=== PATIENT | female | born 1935 | race Caucasian/White ===

== ENCOUNTER → 2023-11-18 10:14 | Outpatient (REF) | payer MEDICARE, OTHER, SELFPAY ==
[2023-11-18 11:09] LABS: % Basophils 0.7 % (0-2); % Eosinophils 1.6 % (0-6); % Immature Granulocytes 0.3 % (0-0.5); % Lymphocytes 42.4 % (20.5-51.1); % Monocytes 5.6 % (1.7-9.3); % Neutrophils 49.4 % (42.2-75.2); Absolute Basophils 0.1 10^3/uL (0-0.2); Absolute Eosinophils 0.2 10^3/uL (0-0.7); Absolute Lymphocytes 4.3 10^3/uL (1.2-3.4); Absolute Monocytes 0.6 10^3/uL (0.1-0.6); Hematocrit 41.3 % (37.0-47.0); Hemoglobin 13.4 g/dL (12.0-16.0); Mean Corp Hgb Conc. 32.4 g/dL (33.0-37.0); Mean Corpuscular Hgb 31.3 pg (27.0-31.0); Mean Corpuscular Volume 96.5 fL (81.0-99.0); Nucleated Red Blood Cells % 0 %; Platelet Count 212 10^3/uL (130-400); Red Blood Cell Count 4.28 10^6/uL (4.20-5.40); Red Cell Dist. Width 13.1 % (11.5-14.5); White Blood Cell Count 10.1 10^3/uL (4.8-10.8)
[2023-11-18 11:35] LABS: ALT (SGPT) 15 U/L (0-35); AST (SGOT) 25 U/L (14-36); Albumin 4.6 g/dl (3.5-5.0); Alkaline Phosphatase 55 U/L (38-126); Blood Urea Nitrogen 17 mg/dl (7-17); Calcium 10.1 mg/dl (8.4-10.2); Carbon Dioxide 29 mmol/L (22-30); Chloride 101 mmol/L (98-107); Glucose 104 mg/dl (70-99); HDL Cholesterol 88 mg/dl; LDL Cholesterol, Calculated 89 mg/dl; Sodium 138 mmol/L (135-145); Total Bilirubin 0.8 mg/dl (0.2-1.3); Total Cholesterol 193 mg/dl (50-199); Total Protein 7.1 g/dl (6.3-8.2); Triglyceride 81 mg/dl (10-149); Very Low Density Lipoprotein 16 mg/dl (0-30); eGFR > 60.00
[2023-11-18 12:02] LABS: TSH Reflex To Free T4 1.35 uIU/ml (0.47-4.68)
== END ==
LOC: REG 10:14
PROVIDERS: ATTENDING PHYSICIAN Nurse Practitioner Family; FAMILY PHYSICIAN Internal Medicine Geriatric Medicine
DX: E78.2 Mixed hyperlipidemia (principal); J44.9 Chronic obstructive pulmonary disease, unspecified; E03.8 Other specified hypothyroidism; Z87.891 Personal history of nicotine dependence; I11.9 Hypertensive heart disease without heart failure; E04.1 Nontoxic single thyroid nodule; E55.9 Vitamin D deficiency, unspecified; R39.15 Urgency of urination; R03.0 Elevated blood-pressure reading, without diagnosis of hypertension; R54 Age-related physical debility; Z63.4 Disappearance and death of family member; R63.4 Abnormal weight loss
CPT/HCPCS: 36415; 80053; 80061; 84443; 85025

== ENCOUNTER 2024-04-11 11:37 | Emergency (ER) | payer MEDICARE, OTHER, SELFPAY ==
[2024-04-11 11:43] VITALS: BP 175/99
--- NOTE | 2024-04-11 11:51 | ED.GENMED ---
History of Present Illness
<JAH Wan Last Filed: 04/11/24 19:12>
General
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
Source: patient
Exam Limitations: none
Time Seen by Provider: 04/11/24 11:50
Nursing documentation reviewed up to this point in time: agreed with
History of Present Illness
History of Present Illness:
88-year-old female with past medical history of hypertension, hyperlipidemia presents emergency department today with concerns of vaginal irritation for the past 4 days. Patient reports that she is prone to getting cysts in her vagina and when she
started to feel irritation, she thought it was another cyst. Patient states that she looked in the area with a mirror and noticed that she had a whitish-pinkish mass in the area. She called her granddaughter who is a ICU nurse and told her to
report to the emergency department for further evaluation. Patient denies any burning with urination, any abdominal pain, any pelvic pain, any vaginal bleeding, any vaginal discharge, any fevers or chills. Patient states that she is feeling well
otherwise, she has had no nausea, no vomiting. Patient has had 4 children via vaginal . 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 Patient states that she is prone to getting urinary
tract infections.
Past History
<JAH Wan Last Filed: 04/11/24 19:12>
Past History
ED Past Medical History: COPD, HTN and Hypercholesterolemia
ED Past Surgical History: Urological
Social History
Tobacco: Former smoker
Drug: None
Personal:
Living: with family
Employment: Retired
Family History
Family History: Other
Review of Systems
<JAH Wan Last Filed: 04/11/24 19:12>
Review of Systems
All Other Systems: ROS reviewed and negative except as documented in HPI and ROS
Phy Exam
<Emily Delcid PA-C - Last Filed: 04/11/24 19:12>
Physical Exam
Physical Exam:
General: Patient is well appearing and in no acute distress; non-toxic
Skin: Warm and dry, no rashes or lesions
Head: Normocephalic, atraumatic
Eyes: Sclera non-icteric. EOMs intact.
Cardiac: Regular rate
Peripheral Vascular: No lower extremity swelling or edema
Pulm: Normal respiratory effort
Abdomen: No abdominal tenderness to palpation, no palpable masses, no inguinal lymphadenopathy
Genitourinary: Prolapse of tissue noted at the vaginal introitus--vaginal versus cervical prolapse. No pain with bimanual exam, no palpable masses. No bartholin gland cyst.
Neuro: CN II-XII intact, no focal neurologic deficits.
Psychiatric: Appropriate mood and affect.
Course
<Emily Delcid PA-C - Last Filed: 04/11/24 19:12>
Orders/Labs/Results
Orders:
Orders
04/11/24 12:27
Urinalysis Reflex To Culture Urgent
Date Specimen was Collected: 04/11/24
Time Specimen was Collected: 12:17
Vital Signs
Initial and Last Documented VS:
Initial Vital Signs
Temp Pulse Resp BP Pulse Ox
98.1 F 88 18 175/99 98
04/11/24 11:43 04/11/24 11:43 04/11/24 11:43 04/11/24 11:43 04/11/24 11:43
Last Documented Vital Signs
Temp Pulse Resp BP Pulse Ox
98.1 F 81 16 167/87 98
04/11/24 11:43 04/11/24 13:38 04/11/24 13:38 04/11/24 13:38 04/11/24 13:38
<Cordell Sanchez DO - Last Filed: 04/11/24 12:25>
Orders/Labs/Results
Orders:
Orders
04/11/24 12:27
Urinalysis Reflex To Culture Urgent
Date Specimen was Collected: 04/11/24
Time Specimen was Collected: 12:17
Vital Signs
Initial and Last Documented VS:
Initial Vital Signs
Temp Pulse Resp BP Pulse Ox
98.1 F 88 18 175/99 98
04/11/24 11:43 04/11/24 11:43 04/11/24 11:43 04/11/24 11:43 04/11/24 11:43
Last Documented Vital Signs
Temp Pulse Resp BP Pulse Ox
98.1 F 81 16 167/87 98
04/11/24 11:43 04/11/24 13:38 04/11/24 13:38 04/11/24 13:38 04/11/24 13:38
<Emily Delcid PA-C - Last Filed: 04/11/24 19:12>
MDM/Problems Addressed
Differential Diagnosis Includes:
Differentials include vaginal prolapse, cervical prolapse, rectal prolapse, resultant gland cyst, atrophic vaginitis
MDM/Problems Addressed:
88-year-old female with past medical history of hypertension, hyperlipidemia presents emergency department today with concerns of vaginal irritation for the past 4 days. Patient reports that she is prone to getting cysts in her vagina and when she
started to feel irritation, she thought it was another cyst. On physical exam, she is no obvious cyst or abscess, no vaginal discharge, no erythema or irritation noted to the vaginal introitus. She does have what appears to be a cervical prolapse.
Discussed that pessary treatment may be needed in the future. Discussed outpatient follow up. Patient stable for discharge.
Chronic conditions affecting care:
htn, hlp
<Emily Delcid PA-C - Last Filed: 04/11/24 19:12>
*Pulse Oximetry
Patient hypoxic: no
*Critical Care Note
Total Time (30-74mins, 75-104mins- exclusive of procedures): Not Applicable
Data Reviewed
Review of Other/Old Records Reveals: Records (Reviewed ER physician documentation from 12/07/2018, patient seen for acute bronchitis)
Source: patient and records
ED Attending Note
<Emily Delcid PA-C - Last Filed: 04/11/24 19:12>
-
Portions of this chart may have been created with voice recognition software.� Occasional wrong word or��sound alike� substitutions may have occurred due to the inherent limitations of voice recognition software.
<Cordell Sanchez DO - Last Filed: 04/11/24 12:25>
ED Attending Note
Patient seen and examined by attending physician: Yes
I performed the substantive portion of visit, reviewed & personally made and approve the management plan that is documented in note by myself or JEAN MARIE.: Yes
ED Attending Note:
88-year-old female presents after she thought she saw a lump in her vagina. The patient had been having a little bit discomfort at her right labia so checked with a mirror. Otherwise no fevers. She currently offers no complaints. She states is
only a mild ache and was not a 'pain'. Exam: Vagina appears normal. She does have a mild cervical prolapse. I wonder if she had a more pronounced prolapse when she looked. Assessment and plan. Okay for outpatient management. Patient appears
well. No other complaints
Discharge Plan
Departure
Patient Disposition: Home (Routine Discharge)
Date of Disposition: 04/11/24
Time of Disposition: 13:30
Patient with high blood pressure during this ER visit?: Yes
Condition: Good
Discharge Problem:
Cervical prolapse
Instructions: Pelvic organ prolapse, BLOOD PRESSURE
Prescriptions:
No Action
Zocor
40 mg PO DAILY
Zoloft
25 mg PO PRN
prednisone 10 MG tablet
10 mg PO .TAPER Qty: 30 0RF
Rx Instructions:
Take 40mg daily x3days, 30mg daily x3days,
20mg daily x3days, 10mg daily x3days.
levofloxacin 500 MG tablet
500 mg PO DAILY 6 Days Qty: 6 0RF
Referrals:
Agapito Baltazar MD [Family Provider] -
Activity Restrictions/Additional Instructions:
Your urinalysis did not show any evidence of infection.
Please follow up with your primary care provider and your urologist.
Please return emergency department should you experience chest pain, shortness of breath, burning with urination, vaginal bleeding, fevers or chills, or any other signs or symptoms concerning to you.
Interventions
Interventions:
*Risk Screen - Suicide Last Done: 04/11/24 11:41
*General Assessment Last Done: 04/11/24 11:41
*Neglect/Abuse Screening Last Done: 04/11/24 11:41
ED- Fall Risk Assessment Last Done: 04/11/24 13:38
*ED COVID-19 Vaccine History Last Done: 04/11/24 12:10
*Nursing Disposition Last Done: 04/11/24 13:38
ED-Female Genitourinary Assessment Last Done: 04/11/24 12:10
Discharge Date and Time
Discharge Date/Time: 04/11/24 13:39
Print Language: AUSTRALIAN
[2024-04-11 13:04] LABS: Urine Albumin Trace (Neg - Trace); Urine Bilirubin Negative (Negative); Urine Character Clear (Clear); Urine Color Yellow; Urine Glucose Negative (Negative); Urine Ketone Negative (Negative); Urine Leukocyte Negative (Negative); Urine Nitrite Negative (Negative); Urine Occult Blood Negative (Negative); Urine Specific Gravity 1.015 (<1.030); Urine Urobilinogen Negative (Neg - 1+)
[2024-04-11 13:38] VITALS: BP 167/87
== END 2024-04-11 13:39 | disposition home or self-care (01) ==
LOC: EMR 11:37
PROVIDERS: Physician Assistant; EMERGENCY PHYSICIAN Emergency Medicine; FAMILY PHYSICIAN Internal Medicine Geriatric Medicine
DX: N81.2 Incomplete uterovaginal prolapse (principal); I10 Essential (primary) hypertension; E78.00 Pure hypercholesterolemia, unspecified; Z87.891 Personal history of nicotine dependence
CPT/HCPCS: 99282; 81003

== ENCOUNTER 2024-07-11 18:45 | Inpatient (IN) | payer MEDICARE, OTHER, SELFPAY ==
[2024-07-11] VITALS (10 sets, daily range): BP systolic 120–162; BP diastolic 58–75; PULSE 85–89; BMI 20.4
--- NOTE | 2024-07-11 15:51 | ED.GENMED ---
History of Present Illness
General
Chief Complaint: Fainting/Passed Out
Source: patient and ambulance crew
Exam Limitations: none
Time Seen by Provider: 07/11/24 15:40
History of Present Illness
History of Present Illness:
88yoF with a history of hypertension, hyperlipidemia, and tobacco use presenting via EMS for evaluation after a syncopal episode. Patient has been sick for the past 2 days with flu-like symptoms and 'feeling like hell.' She went to urgent care today
and tested positive for the flu. She was stood up from the stretcher and started to feel dizzy. She went to sit in the chair and told her granddaughter that she felt like she had to pass out. Granddaughter states she went unresponsive and patient
was lowered to the ground. The doctor at the urgent care apparently did not heart any heart sounds. The granddaughter is an ICU nurse at [facility] and started CPR. She had 1 round of CPR and 2 rescue breaths and patient started to wake up.
Patient was awake and alert on EMS arrival. She reports some chest discomfort currently.
Past History
Past History
ED Past Medical History: COPD, HTN and Hypercholesterolemia
ED Past Surgical History: Urological
Social History
Tobacco: Former smoker
Drug: None
Personal:
Living: with family
Employment: Retired
Family History
Family History: Other
Phy Exam
General Physical Exam
General Presentation: well appearing and no apparent distress
General age: appears stated age
General Skin: warm and dry
General Habitus: normal
General Mental: alert
ENT Exam
ENT Exam: normocephalic
Cardiovascular Exam
Cardiovascular Exam: regular rate/rhythm, no edema and no murmur
Pulmonary Exam
Pulmonary Exam: lungs clear, no respiratory distress, no rales, no crackles, no rhonchi and other (Mild chest wall tenderness. No ecchymosis or crepitus. Equal bilateral breath sounds. )
Neurological Exam
Neurological Exam: alert
[place] Coma Scale
Eye Opening: Spontaneous
Verbal Response: Oriented
Motor Response: Obeys Commands
GCS Total Score: 15
Skin Exam
Skin Exam: normal color and warm/dry
Psychiatric Exam
Psychiatric Exam: normal mood/affect
Course
Orders/Labs/Results
Orders:
Orders
07/11/24 Breakfast
Regular
At Your Request: Full Participation
07/11/24 15:46
Electrocardiogram (*1) Urgent
Reason for Study: Fatigue / Weakness
EKG- Treatment ONCE
07/11/24 15:48
Cardiac Monitoring- Treatment ONCE
07/11/24 15:49
CR Chest - 2 Views Urgent
Comment:
Reason For Exam: SOB
07/11/24 15:52
COVID-19 Antigen Urgent
Source: Nasal Swab
Complete Blood Count/With Diff Urgent
Comprehensive Metabolic Panel Urgent
Troponin I Urgent
Influenza A+B Rapid Molecular Urgent
TRACEE Source: Nasal Swab
Specimen Description:
07/11/24 16:29
0.9% Sodium Chloride 500 ml [Nss] 500 ml IV BOLUS
07/11/24 17:34
Admit/Transfer Patient As Directed
Co-Sign Provider:
Level of Care: Inpatient admission
Assign to:: Telemetry
Physician / Group: Serena
Diagnosis: Influenza, Syncope, Elevated Trop
Reason for Telemetry: Syncope
Date to Stop Telemetry: 07/13/24
Time to Stop Telemetry: 11:00
Reason for Hospitalization: Syncope, Elevated Trop, Influenza
Expected length of stay greater than two midnights?: Yes
ELOS- Estimated Length of Stay in days: 3
I certify the patient meets the requirements for IP care: Yes
07/11/24 17:43
Code Status As Directed
Resuscitation Status: Full Code
07/11/24 17:51
Acetaminophen [Tylenol] 650 mg PO Q4HPRN PRN
07/11/24 20:16
Ipratropium/Albuterol Sulfate [Duoneb] 3 ml INH R Q4HPRN PRN
Methenamine Hippurate [Hiprex] 1 gram PO BID
Oseltamivir Phosphate [Tamiflu] 30 mg PO BID
07/11/24 20:16
Echo 2D MMode Color/Doppler Routine
Reason for Study: syncope
CARDIOLOGY CONSULT Routine
Consulting Provider: Michelle Avendaño
Was physician already notified: Yes
DIETARY CONSULT Routine
Reason for Consult: weight loss
Activity As Directed
Activity Level: Out of Bed- Chair
I&O [Intake/ Output] As Directed
Frequency: q12h
Vital Signs As Directed
Frequency: Per unit guidelines
Weight As Directed
Frequency: Daily
Smoking Cessation Counseling [RESP] Routine
Ot Eval And Treat Routine
Pt Eval And Treat Routine
Activity Level: Out of Bed-Early Mobility
DX Deep Vein Thrombosis Video Routine
07/12/24 00:00
Heparin 5,000 units SC Q8
07/12/24 06:00
Basic Metabolic Panel IN AM
Complete Blood Count/No Diff IN AM
07/12/24 08:00
Atorvastatin [Lipitor] 20 mg PO DAILY
Mirtazapine [Remeron] 7.5 mg PO DAILY
Tiotropium [place] 2.5 Mcg [Spiriva Respimat 2.5 Mcg] 2 puff INH R DAILY
Abnormal Lab Results
07/11/24
15:52
MCH 32.2 H pg
(27.0-31.0)
MPV 11.0 H fL
(7.4-10.4)
Abs Immat Gran (auto) 0.1 H 10^3/uL
(0-0.05)
Absolute Monos (auto) 0.8 H 10^3/uL
(0.1-0.6)
Immature Gran % 1.4 H %
(0-0.5)
Lymphocytes % 19.2 L %
(20.5-51.1)
Monocytes % 10.2 H %
(1.7-9.3)
Sodium 133 L mmol/L
(135-145)
Chloride 97 L mmol/L
(98-107)
BUN 21 H mg/dl
(7-17)
Glucose 113 H mg/dl
(70-99)
AST 45 H U/L
(14-36)
Troponin I 0.090 H* ng/ml
07/11/24 15:52
07/11/24 15:52
Vital Signs
Initial and Last Documented VS:
Initial Vital Signs
Temp Pulse Resp BP Pulse Ox
99.2 F 88 16 145/67 95
07/11/24 15:42 07/11/24 15:42 07/11/24 15:42 07/11/24 15:42 07/11/24 15:42
Last Documented Vital Signs
Temp Pulse Resp BP Pulse Ox
99.2 F 91 18 149/69 93
07/11/24 20:30 07/11/24 20:30 07/11/24 20:30 07/11/24 20:30 07/11/24 20:30
MDM/Problems Addressed
Differential Diagnosis Includes:
88yoF here after a syncopal episode at urgent care. [place] dizzy and went unresponsive. Staff at urgent care reportedly could not hear heart sounds and CPR was started. Received 1 round of CPR and patient woke up. Patient awake and alert on arrival.
She c/o chest discomfort which she did not have prior to CPR. VSS. Differential diagnosis includes but is not limited to: vasovagal event, orthostatic hypotension, dehydration, arrhythmia, doubt true cardiac arrest
Initial ED plan: Check cardiac labs, EKG, COVID/flu swab, and CXR. IV fluid bolus.
*EKG
Interpreted by ED Provider?: Yes
EKG Intrepretation Date: 07/11/24
Heart Rate: 86
Rate: normal
Rhythm: sinus
Pease: normal axis
QRS Pattern: left vent hypertrophy
Ischemia: non-specific ST changes
*Critical Care Note
Total Time (30-74mins, 75-104mins- exclusive of procedures): Not Applicable
Update Note
Update Note:
Troponin is mildly elevated at 0.09. Suspect this is 2/2 CPR. No ischemic changes on EKG and patient had no chest pain prior to receiving CPR. Influenza test positive. CXR negative for infiltrates. Patient admitted for further evaluation and
management.
ED Attending Note
-
Portions of this chart may have been created with voice recognition software.� Occasional wrong word or��sound alike� substitutions may have occurred due to the inherent limitations of voice recognition software.
Discharge Plan
Departure
Patient Disposition: Admit
Date of Disposition: 07/11/24
Time of Disposition: 17:01
Presentation/result/management discussed w/ accepting MD/DO: Hospitalist
Discharge Problem:
Syncope, Influenza A, Elevated troponin
Interventions
Interventions:
*Risk Screen - Suicide Last Done: 07/11/24 15:49
*General Assessment Last Done: 07/11/24 15:49
*Neglect/Abuse Screening Last Done: 07/11/24 15:49
*ED COVID-19 Vaccine History Last Done: 07/11/24 15:49
*Nursing Disposition Last Done: 07/11/24 20:15
ED- Cardiac Assessment Last Done: 07/11/24 15:49
ED- Neurological Assessment Last Done: 07/11/24 15:49
Discharge Date and Time
Discharge Date/Time: 07/11/24 20:15
[2024-07-11 16:00] LABS: % Basophils 0.8 % (0-2); % Immature Granulocytes 1.4 % (0-0.5); % Lymphocytes 19.2 % (20.5-51.1); % Monocytes 10.2 % (1.7-9.3); % Neutrophils 68.4 % (42.2-75.2); Absolute Basophils 0.1 10^3/uL (0-0.2); Absolute Immature Granulocytes 0.1 10^3/uL (0-0.05); Absolute Lymphocytes 1.4 10^3/uL (1.2-3.4); Absolute Monocytes 0.8 10^3/uL (0.1-0.6); Absolute Neutrophils 5.1 10^3/uL (1.4-6.5); Hematocrit 39.7 % (37.0-47.0); Hemoglobin 13.6 g/dL (12.0-16.0); Mean Corp Hgb Conc. 34.3 g/dL (33.0-37.0); Mean Corpuscular Hgb 32.2 pg (27.0-31.0); Mean Corpuscular Volume 94.1 fL (81.0-99.0); Nucleated Red Blood Cells % 0 %; Platelet Count 177 10^3/uL (130-400); Red Blood Cell Count 4.22 10^6/uL (4.20-5.40); Red Cell Dist. Width 13.3 % (11.5-14.5); White Blood Cell Count 7.4 10^3/uL (4.8-10.8)
[2024-07-11 16:13] LABS: COVID-19 Antigen Negative (Negative)
[2024-07-11 16:14] LABS: ALT (SGPT) 29 U/L (0-35); AST (SGOT) 45 U/L (14-36); Albumin 4.7 g/dl (3.5-5.0); Alkaline Phosphatase 60 U/L (38-126); Blood Urea Nitrogen 21 mg/dl (7-17); Calcium 8.9 mg/dl (8.4-10.2); Carbon Dioxide 25 mmol/L (22-30); Chloride 97 mmol/L (98-107); Glucose 113 mg/dl (70-99); Potassium 4.1 mmol/L (3.5-5.1); Sodium 133 mmol/L (135-145); Total Bilirubin 0.7 mg/dl (0.2-1.3); Total Protein 6.9 g/dl (6.3-8.2); eGFR 54.53
[2024-07-11] MEDS: NSS 500 IV (16:32)
--- NOTE | 2024-07-11 17:51 | HPS.HSE ---
Family Physician
-
Family Physician: Agapito Baltazar
Chief Complaint
-
Syncope, Fever
History of Present Illness
Patient is an 88-year-old female past medical history of hyperlipidemia, and tobacco use disorder who presents following a syncopal episode. Additional history is obtained from patient's granddaughter at the bedside. Patient developed flu-like
symptoms 2 days ago. She reports weakness, fatigue, poor appetite, with bodyaches, chills and fever. She also notes some intermittent dizziness. She was seen in urgent care today and tested positive for influenza. While at urgent care she
transferred on the exam table to a chair. Shortly after sitting in the chair she passed out. Granddaughter lowered her to the floor and was unable to detect a radial pulse. Granddaughter started CPR, and patient quickly woke up. EMS was called
and upon arrival patient was noted to be mildly hypotensive, and she is brought to the emergency department for evaluation.
Medical History
Past Medical History
Past Medical History: Reports Other
Additional Past Medical History:
Hyperlipidemia
Recurrent UTIs
Tobacco Use Disorder
Weight Loss / Malnutrition
Past Surgical History: Reports Other
Additional Past Surgical History:
Bladder Surgery
Social History
Tobacco: Smoker (1/2 PPD)
Living: Alone
Family History
Family History: Not pertinent
Allergies / Home Medications
Allergies reflects when Allergies were last updated in [facility].
Home Medications with original date entered in [facility]
Allergy/Medication List:
Allergies
Allergy/AdvReac Type Severity Reaction Status Date / Time
Penicillins Allergy Rash Verified 12/07/18 19:47
Home Medications
methenamine hippurate 1 gram tablet 1 g PO BID 07/11/24
mirtazapine 7.5 mg tablet 7.5 mg PO DAILY 07/11/24
simvastatin 40 mg tablet 40 mg PO DAILY 07/11/24
tiotropium bromide 2.5 mcg/actuation mist for inhalation (Spiriva Respimat) 2 puff inhalation DAILY 07/11/24
Review of Systems
-
A 12 point ROS was completed and negative except as noted: Yes
Constitutional: Reports Fever and Chills
Respiratory: Reports Cough
Cardiac: Reports Other (Chest soreness following CPR ); Denies Palpitations
Physical Exam
Vital Signs
Vital Signs
Temp Pulse Resp BP Pulse Ox
99.2 F 87 30 146/65 94
07/11/24 15:42 07/11/24 17:00 07/11/24 17:00 07/11/24 17:00 07/11/24 17:00
Physical Exam
General: Comfortable and Conversant
HEENT: Anicteric, Moist mucous membranes and Other
Respiratory: Rhonchi (Few scattered) and Non Labored Respirations
Cardiac: S1/S2 and Regular Rhythm; No Murmur
GI: Soft and Non Tender
Rectal: Deferred by Provider
Musculoskeletal: No Clubbing, No Cyanosis and No Edema
Skin: Warm and Dry
Neuro: Awake, Alert, Oriented and Nonfocal/grossly intact
Psych: Calm
Laboratory Results
-
07/11/24 15:52
07/11/24 15:52
Laboratory Results
Total Bilirubin 0.7 mg/dl (0.2-1.3) 07/11/24 15:52
AST 45 U/L (14-36) H 07/11/24 15:52
ALT 29 U/L (0-35) 07/11/24 15:52
Alkaline Phosphatase 60 U/L (38-126) 07/11/24 15:52
Troponin I 0.090 ng/ml H* 07/11/24 15:52
Data Reviewed
-
Diagnostic Radiology: Report Reviewed by me
Lab Data: Labs Reviewed by me
Impression/Plan
-
Syncope, doubt true cardiac arrest
-Consult Cardiology
-Trend Troponin, currently minimally elevated likely related to CPR
-Monitor on Telemetry
-Check Echo
-Check orthostatic VS
Acute Bronchitis secondary to Influenza A
-Continue Tamiflu
-Continue DuoNeb PRN
Tobacco Use Disorder
-Encourage smoking cessation
-Continue Spiriva
Hyperlipidemia
-Continue simvastatin
Weight Loss / Malnutrition
-Continue mirtazapine
-Consult Dietary
Recurrent UTIs
-Continue Hiprex
DVT proph: SC Heparin
Code Status: Full Code
[2024-07-11] MEDS: TYLENOL 650 MG PO ×2 (17:54→21:48)
--- NOTE | 2024-07-11 18:02 | W.PN.UPDATE ---
Update Note
Progress Note Update
This is an addendum to the H&P written by Chiquis Pemberton on 07/11/2024.� Patient seen and examined independently with PA.
88-year-old female past medical history of hyperlipidemia, tobacco use presenting for syncopal episode.� Patient having upper respiratory symptoms, weakness and fever for the past 2 days.� Tested positive for flu at urgent care today.� [place] dizzy
today and had syncopal episode at urgent care.� Dr Melonie reynaga did not hear heart sounds and granddaughter who is an ICU nurse started CPR.� She received 1 round of CPR and 2 rescue breaths started to wake up. Patient with some chest pain.�
Chest x-ray shows probable chronic pleural-parenchymal scarring in the lung apices.� No pneumonia.� Small probable post inflammatory bleb.� Labs normal.� Troponin of 0.09.� EKG shows normal sinus rhythm.
Influenza positive.� COVID-negative.
Patient with syncopal episode in the setting of influenza infection.� Doubt true cardiac arrest.� Slight troponin elevation could be secondary to CPR.� IV fluids given.� Tamiflu started.� Trend troponins.
[2024-07-11] MEDS: HIPREX 1 GRAM PO (20:59)
[2024-07-11] MEDS: TAMIFLU 30 MG PO (21:00)
[2024-07-11] MEDS: REMERON 7.5 MG PO (21:47)
--- NOTE | 2024-07-11 22:00 | PTCARENOTE ---
pt is aaox3, VENETIE IRA. pt c/o sternal pain r/t cpr done at urgent care. -administered Tylenol w/ +eff. pt is flu positive. stating 90-92% on room air. while ambulating pt de-stated to 84% on room air. pt was MATTA/SOB. placed on 2L w/ SpO2=96%. bed alarm
on and pt is oriented to room w/ call santos in reach.
[2024-07-11 22:12] LABS: Troponin I 0.101 ng/ml
[2024-07-11] MEDS: HEPARIN 5000 UNITS SC (22:51)
[2024-07-12] VITALS (8 sets, daily range): BP systolic 125–149; BP diastolic 54–68; PULSE 83; O2SAT 84–97; BMI 20.2
[2024-07-12] MEDS: TYLENOL 650 MG PO ×3 (06:15→21:11)
[2024-07-12 06:52] LABS: Hematocrit 41.8 % (37.0-47.0); Hemoglobin 13.8 g/dL (12.0-16.0); Mean Corpuscular Hgb 31.6 pg (27.0-31.0); Mean Corpuscular Volume 95.7 fL (81.0-99.0); Mean Platelet Volume 11.3 fL (7.4-10.4); Platelet Count 163 10^3/uL (130-400); Red Blood Cell Count 4.37 10^6/uL (4.20-5.40); Red Cell Dist. Width 13.3 % (11.5-14.5); White Blood Cell Count 6.1 10^3/uL (4.8-10.8)
--- NOTE | 2024-07-12 07:11 | W.PN.HOSP.TC ---
Today's Communication/Plan
-
Patient doing well this morning, has some musculoskeletal chest pain, otherwise no SOB, no dizziness
Continue to monitor on telemetry
Assessment / Plan
Assessment / Plan
Physical Exam
General: Comfortable and Conversant
HEENT: Anicteric, Moist mucous membranes and Other
Respiratory: Rhonchi (Few scattered) and Non Labored Respirations
Cardiac: S1/S2 and Regular Rhythm
GI: Soft and Non Tender. Positive bowel sounds.
Musculoskeletal: No Cyanosis and No Edema
Skin: Warm and Dry
Neuro: Awake, Alert, Oriented x3. Cranial Nerves 2 through 12 grossly intact bilaterally. Strength and sensation grossly intact bilaterally.
Psych: Calm
Assessment/Plan
Syncope, doubt true cardiac arrest
-At urgent care on 07/11/24, urgent care provider did not hear heart sounds and granddaughter who is an ICU nurse started CPR -- patient received 1 round of CPR and 2 rescue breaths started to wake up -- had some chest
wall pain after that, as expected
-Consulted Cardiology, appreciate their evaluation and recommendations
-Trend Troponin, currently minimally elevated likely related to CPR
-Chest x-ray showed probable chronic pleural-parenchymal scarring in the lung apices; small probable post inflammatory bleb.
-Monitor on Telemetry
-Check Echo
-Check orthostatic VS
Acute Bronchitis secondary to Influenza A
URI symptoms, weakness and fever for ~2 days prior to presentation
-Continue Tamiflu
-Continue DuoNeb PRN
Tobacco Use Disorder
-Encourage smoking cessation
-Continue Spiriva
Hyperlipidemia
-Continue simvastatin
Weight Loss / Malnutrition
-Continue mirtazapine
-Consult Dietary
Recurrent UTIs
-Continue Hiprex
DVT Prophylaxis: Subq Heparin
Code Status: Full Code
Anticipated Discharge: 24 - 48 hours
Subjective/Interval History
-
Date of Service: July 12, 2024
Patient was seen and examined. She denied any dizziness, shortness of breath, still has some musculoskeletal chest pain from the chest compressions she received.
Objective Data
-
Labs:
Laboratory Results
07/12/24
05:58
WBC 6.1
Hgb 13.8
Hct 41.8
Plt Count 163
Sodium Pending
Potassium Pending
Chloride Pending
Carbon Dioxide Pending
BUN Pending
Creatinine Pending
Glucose Pending
Calcium Pending
Vital Signs:
Vital Signs
Temp Pulse Resp BP Pulse Ox
98.8 F 89 18 134/61 92
07/12/24 03:02 07/12/24 03:02 07/12/24 03:02 07/12/24 03:02 07/12/24 03:02
I&O
07/11/24 07/12/24 07/13/24
06:59 06:59 06:59
Intake Total 240 / 240
Balance 240 / 240
[2024-07-12 07:23] LABS: Blood Urea Nitrogen 21 mg/dl (7-17); Calcium 8.6 mg/dl (8.4-10.2); Carbon Dioxide 27 mmol/L (22-30); Chloride 101 mmol/L (98-107); Estimated Creatinine Clearance 36 ml/min; Glucose 84 mg/dl (70-99); Sodium 136 mmol/L (135-145); eGFR > 60.00
[2024-07-12] MEDS: LIPITOR 20 MG PO (07:58)
[2024-07-12] MEDS: HIPREX 1 GRAM PO ×2 (07:58→21:09)
[2024-07-12] MEDS: TAMIFLU 30 MG PO ×2 (07:58→21:09)
[2024-07-12] MEDS: HEPARIN 5000 UNITS SC ×3 (08:20→23:41)
[2024-07-12] MEDS: SPIRIVA RESPIMAT 2.5 MCG 2 PUFF INH (08:48)
[2024-07-12 09:15] LABS: Troponin I 0.153 ng/ml
[2024-07-12 12:13] LABS: Glucose - Point of Care 137 mg/dl (70-99)
--- NOTE | 2024-07-12 13:08 | PTCARENOTE ---
Pt says she feels better/stronger today. Trailed off O2 and is 91% on room air. Denies sob. OOB w/ assist x 1 and RW w/o issue.
--- NOTE | 2024-07-12 14:33 | CON.CAR ---
Addendum entered and electronically signed by Gladys Carlos DO 07/12/24 16:45:
I saw and examined the patient.
The Manager [employer]'s note was reviewed and I agree with the note.
Comment: Patient seen and examined. Chart/telemetry reviewed. Updated patient's granddaughter, Kyara who is also POA over the telephone. Still complaining of cough and shortness of breath but not currently requiring nasal cannula O2. Had noted
some desaturations with ambulation last evening. She is mostly complaining of rib/sternal pain following CPR prior to admission
General: No acute distress, AAOX3
Heart: Regular. Positive S1-S2 no murmurs or rubs
Lungs: Bronchovesicular breath sounds with coarse rhonchi bilaterally. Positive end expiratory wheeze bilaterally.
Chest: No ecchymosis or chest wall deformities
Abd: Positive BS, NT/ND, neg rebound/rigidity/guarding
Ext: No edema
Neuro: nonfocal
Plan:
88-year-old female with influenza A status post loss of consciousness/syncope at urgent care with brief CPR by granddaughter
-Supportive care for influenza
-Tamiflu
-O2 supplementation as needed. Would recheck ambulatory O2 prior to discharge
Concern for coronary artery disease
-She has cardiac risk factors with ongoing tobacco dependence and some episodes of exertional chest pain as an outpatient prior to this event when she carries groceries up the steps
-She denies chest pain at the time of syncopal event
-History of left bundle branch block dating back to EKG from 2019; patient/family were unaware
-Current chest pain complaints are consistent with musculoskeletal following CPR
-Troponin peak 0.153
-2D echocardiogram reviewed with patient and granddaughter: Low normal LV systolic function with mild anteroseptal hypokinesis. No hemodynamically significant valve pathology. No pericardial effusion
-Options of ischemic evaluation reviewed. Will plan for medical therapy while recovering from influenza A. Will arrange for an outpatient Lexiscan nuclear stress test and outpatient cardiac follow-up.
-Continue aspirin 81 mg daily. Continue atorvastatin 20 mg daily. Will add Toprol-XL 12.5 mg daily.
-Lipid profile pending
Musculoskeletal/rib pain following brief bystander CPR
-Would get rib x-rays
Tobacco dependence
-Tobacco cessation strongly advised
-Consider outpatient pulmonary evaluation
Discharge planning
Original Note:
Consultation
Consultation Request
Date/Time Consultation Performed: 07/12/24
Requesting Provider: Dr. Lopez
Performing Provider: Felisa Ramirez PA-C for Dr. Carlos
Reason for Consultation: elevated troponin, syncope
Medical History
-
Chief Complaint: syncope
History of Present Illness:
Patient is an 88-year-old female with past medical history of recurrent UTIs, hyperlipidemia, likely COPD, ongoing tobacco use who presented to [facility] due to syncopal episode while at urgent care for evaluation of flulike symptoms. She
tested positive for influenza. Shortly after transferring from exam table to a chair she passed out. Her granddaughter who is an ICU nurse lowered her to the floor and was unable to detect a pulse, therefore started CPR, and patient was noted to
quickly wake up. Denies prodromal symptoms however states it all happened very fast. She was brought to the ER and admitted. Cardiology consulted as troponins mildly elevated. Patient denies cardiac history, and denies chest pains prior to
admission and prior to the episode. She does report some chest discomfort at present felt to be due to CPR.
PMH:
Recurrent UTIs
Hyperlipidemia
Chronic left bundle branch block
COPD
Ongoing tobacco use
Past Medical History
Past Medical History: Other (in HPI)
Social History
Tobacco: Smoker
Alcohol: None
Personal:
Living: Alone
Employment: Retired
Family History
Family History: Reviewed & Not Pertinent
Allergies / Home Medications
Allergy/AdvReac Type Severity Reaction Status Date / Time
Penicillins Allergy Rash Verified 12/07/18 19:47
�Medication �Instructions �Recorded �Confirmed �Type
methenamine hippurate 1 gram tablet 1 g PO BID 07/11/24 07/11/24 History
mirtazapine 7.5 mg tablet 7.5 mg PO DAILY 07/11/24 07/11/24 History
simvastatin 40 mg tablet 40 mg PO DAILY 07/11/24 07/11/24 History
tiotropium bromide 2.5 2 puff inhalation DAILY 07/11/24 07/11/24 History
mcg/actuation mist for inhalation
(Spiriva Respimat)
Review of Systems
-
History Source: Patient
All other systems: Negative unless noted
Physical Exam
Vital Signs
Temp Pulse Resp BP Pulse Ox
98.1 F 80 16 131/57 91
07/12/24 11:44 07/12/24 11:44 07/12/24 11:44 07/12/24 11:44 07/12/24 13:08
Lab Results
07/12/24 05:58
07/12/24 05:58
Troponin I 0.153 ng/ml H* 07/12/24 08:26
Physical Exam
General: No Apparent Distress and Comfortable
HEENT: Normocephalic, Anicteric and Moist Mucous Membranes
Respiratory: Wheezes (few B/L) and Non Labored Respirations
Cardiac: S1/S2 and Regular Rhythm
GI: Soft, Non Tender, Non Distended and Normal Bowel Sounds
Musculoskeletal: No Clubbing, No Cyanosis and No Edema
Skin: Warm and Dry
Neuro: AO x 3
Impression / Plan
-
Primary Cupola Melter: none prior to admission
Assessment:
Presentation with syncope
Chest discomfort s/p brief CPR secondary to above
Influenza A +
Bronchitis secondary to above
Elevated troponin, suspected nonischemic myocardial injury secondary to above
Recurrent UTIs
Hyperlipidemia
Chronic left bundle branch block
COPD
Ongoing tobacco use
Weight Loss / Malnutrition
ECHO 07/12/24: pending
Plan:
-Patient presented after syncopal episode at urgent care after being diagnosed with influenza A. She has had poor appetite, fatigue, weakness in setting of the flu
-Cardiology consulted due to elevated troponin, peak troponin 0.15.
-Reports chest discomfort, however this is felt to be secondary to CPR she received in setting of syncopal episode
-EKG sinus rhythm with chronic left bundle branch block
-Check echo
-Add aspirin 81 mg daily
-Check CVE. on zocor 40mg daily as OP
-would avoid BB in setting of known COPD. BPs stable
-would plan for OP cardiac follow up and ischemic evaluation once recovered
-continue supportive care of influenza. no evidence of PNA by CXR
-reviewed PCP note in eCW from 01/04/24
Data Reviewed
-
EKG: Tracing Personally Visualized and interpreted
Radiology: Report Reviewed by me
Labs: Labs Reviewed by me
Old Records: Reviewed
[2024-07-12 14:45] LABS: Troponin I 0.135 ng/ml
[2024-07-12] MEDS: LOW STRENGTH ASPIRIN 81 MG PO (15:48)
[2024-07-12 16:12] LABS: HDL Cholesterol 80 mg/dl; LDL Cholesterol, Calculated 85 mg/dl; Total Cholesterol 182 mg/dl (50-199); Triglyceride 86 mg/dl (10-149); Very Low Density Lipoprotein 17 mg/dl (0-30)
[2024-07-12] MEDS: TOPROL XL 12.5 MG PO (16:38)
--- NOTE | 2024-07-12 18:41 | PTCARENOTE ---
Received pt from [facility] via wheelchair. Pt transferred with minimal assist x 1 into bed. C/O chest, sternal pain. Tylenol previously given. Will continue to monitor.
[2024-07-12] MEDS: REMERON 7.5 MG PO (21:09)
[2024-07-13] VITALS (7 sets, daily range): BP systolic 72–155; BP diastolic 40–71; PULSE 44–74; O2SAT 91
[2024-07-13] MEDS: TYLENOL 650 MG PO ×2 (03:00→08:18)
--- NOTE | 2024-07-13 07:42 | W.PN.HOSP.TC ---
Today's Communication/Plan
-
Stop beta lori
Bedrest since patient had near syncope while standing with low HR and low BP on standing -- cardiology to evaluate further
Assessment / Plan
Assessment / Plan
Physical Exam
General: Comfortable and Conversant
HEENT: Anicteric, Moist mucous membranes and Other
Respiratory: Rhonchi (Few scattered) and Non Labored Respirations
Cardiac: S1/S2 and Regular Rhythm
GI: Soft and Non Tender. Positive bowel sounds.
Musculoskeletal: No Cyanosis and No Edema
Skin: Warm and Dry
Neuro: Awake, Alert, Oriented x3. Cranial Nerves 2 through 12 grossly intact bilaterally. Strength and sensation grossly intact bilaterally.
Psych: Calm
Assessment/Plan
Syncope, doubt true cardiac arrest
Orthostatic Hypotension
-Orthostatic hypotension: blood pressure laying 119/56, HR 74. BP sitting 72/40, HR 71.
-At urgent care on 07/11/24, urgent care provider did not hear heart sounds and granddaughter who is an ICU nurse started CPR -- patient received 1 round of CPR and 2 rescue breaths started to wake up -- had some chest
wall pain after that, as expected
-Consulted Cardiology, appreciate their evaluation and recommendations
-Chest x-ray showed probable chronic pleural-parenchymal scarring in the lung apices; small probable post inflammatory bleb.
-Monitor on Telemetry
-Echo 07/12 with EF 51% and mild mid anteroseptal hypokinesis as noted above. Would recommend OP ischemic evaluation once recovered from influenza.
-Will consider Midodrine, but patient does have bradycardia at times
-JIMI compression hose
-Maintain bedrest for now given significant orthostatic symptoms and bradycardia upon standing
Bradycardia
-Hold beta lori which was newly started
Acute Bronchitis secondary to Influenza A
URI symptoms, weakness and fever for ~2 days prior to presentation
-Continue Tamiflu
-Continue DuoNeb PRN
New, right hip/leg pain that is sharp and stabbing
-CT of the right hip
Tobacco Use Disorder
-Encourage smoking cessation
-Continue Spiriva
Hyperlipidemia
-Continue simvastatin
Weight Loss / Malnutrition
-Continue mirtazapine
-Consult Dietary
Recurrent UTIs
-Continue Hiprex
DVT Prophylaxis: Subq Heparin will switch to Lovenox
Code Status: Full Code
Anticipated Discharge: > 48 hours
Subjective/Interval History
-
Date of Service: July 13, 2024
Patient was seen and examined. She was sitting comfortably in a chair, denied any dizziness, but later in the afternoon, she a near syncope episode with HR dropping into the 40s, resolved with rest.
Objective Data
-
Labs:
Laboratory Results
07/13/24
07:25
WBC Pending
Hgb Pending
Hct Pending
Plt Count Pending
Sodium Pending
Potassium Pending
Chloride Pending
Carbon Dioxide Pending
BUN Pending
Creatinine Pending
Glucose Pending
Calcium Pending
Total Bilirubin Pending
AST Pending
ALT Pending
Alkaline Phosphatase Pending
Vital Signs:
Vital Signs
Temp Pulse Resp BP Pulse Ox
98.4 F 89 18 137/60 90
07/13/24 03:09 07/13/24 03:09 07/13/24 03:09 07/13/24 03:09 07/13/24 03:09
I&O
07/12/24 07/13/24 07/14/24
06:59 06:59 06:59
Intake Total 240 / 240 240 / 240
Balance 240 / 240 240 / 240
[2024-07-13] MEDS: HIPREX 1 GRAM PO ×2 (07:53→21:20)
[2024-07-13] MEDS: TAMIFLU 30 MG PO ×2 (07:54→21:24)
[2024-07-13] MEDS: LIPITOR 20 MG PO (07:54)
[2024-07-13] MEDS: LOW STRENGTH ASPIRIN 81 MG PO (07:55)
[2024-07-13] MEDS: HEPARIN 5000 UNITS SC ×2 (07:56→16:51)
[2024-07-13] MEDS: TOPROL XL PO (07:57)
[2024-07-13] MEDS: SPIRIVA RESPIMAT 2.5 MCG 2 PUFF INH (08:14)
[2024-07-13 08:20] LABS: % Basophils 0.7 % (0-2); % Eosinophils 0.1 % (0-6); % Immature Granulocytes 0.3 % (0-0.5); % Lymphocytes 38.6 % (20.5-51.1); % Monocytes 8.2 % (1.7-9.3); % Neutrophils 52.1 % (42.2-75.2); Absolute Basophils 0.1 10^3/uL (0-0.2); Absolute Lymphocytes 2.9 10^3/uL (1.2-3.4); Absolute Monocytes 0.6 10^3/uL (0.1-0.6); Absolute Neutrophils 3.9 10^3/uL (1.4-6.5); Hematocrit 39.1 % (37.0-47.0); Hemoglobin 13.1 g/dL (12.0-16.0); Mean Corp Hgb Conc. 33.5 g/dL (33.0-37.0); Mean Corpuscular Hgb 31.4 pg (27.0-31.0); Mean Corpuscular Volume 93.8 fL (81.0-99.0); Mean Platelet Volume 11.7 fL (7.4-10.4); Nucleated Red Blood Cells % 0 %; Platelet Count 165 10^3/uL (130-400); Red Blood Cell Count 4.17 10^6/uL (4.20-5.40); Red Cell Dist. Width 13.4 % (11.5-14.5); White Blood Cell Count 7.5 10^3/uL (4.8-10.8)
[2024-07-13 09:12] LABS: ALT (SGPT) 33 U/L (0-35); AST (SGOT) 59 U/L (14-36); Albumin 3.6 g/dl (3.5-5.0); Alkaline Phosphatase 49 U/L (38-126); Blood Urea Nitrogen 27 mg/dl (7-17); Calcium 8.7 mg/dl (8.4-10.2); Carbon Dioxide 24 mmol/L (22-30); Chloride 101 mmol/L (98-107); Estimated Creatinine Clearance 36 ml/min; Glucose 76 mg/dl (70-99); Potassium 4.1 mmol/L (3.5-5.1); Sodium 133 mmol/L (135-145); Total Bilirubin 0.6 mg/dl (0.2-1.3); Total Protein 5.8 g/dl (6.3-8.2); eGFR > 60.00
--- NOTE | 2024-07-13 10:05 | W.PN.CARDCBS ---
Addendum entered and electronically signed by Kumar Pichardo MD 07/13/24 17:40:
88-year-old woman admitted from urgent care with syncope in the setting of influenza A. Patient had detectable troponin 0.153, had received CPR, chest discomfort possibly related to chest compressions. Blood pressure dropped with metoprolol, which
has been stopped. She had sinus pauses without second-degree AV block up to 4.5 seconds. These were relatively abrupt without PP cycle length lengthening prior to pause. Cycle length
PMH: UTIs, hyperlipidemia, left bundle branch block, COPD with ongoing tobacco abuse, weight loss and poor nutrition, bronchitis
Current meds: Methamphetamine, atorvastatin 20, Spiriva, Tamiflu, subcu heparin, Remeron, aspirin 81 mg a day, lidocaine patch
Patient hypotensive earlier, currently 133/71, pulse 72, respiratory 21, afebrile, weight is 46.4 kg, chronically ill, now with acute pain right anterolateral thigh just below the inguinal ligament, limited exam and lungs with some rales right base,
regular rate and rhythm, no obvious murmurs,
Hemoglobin is 13.1, white count 7 point, platelets 165, BUN and creatinine 27 and 0.8, potassium 4 point
Chest x-ray no active disease
ECG sinus rhythm, left bundle branch block
ECG: EF 81%, anteroseptal wall motion abnormality, normal RV, trace MR, mild TR
Impression:
Syncope in the setting of influenza A
Longstanding left bundle branch block, with pauses up to 4.5 seconds on monitor
Suspected hematoma near the origin of right quadriceps
Non-ACS related myocardial injury likely related to influenza A
COPD/ongoing tobacco use
Plan:
At this point, syncope has been attributed to physiologic stress of influenza A, possible volume depletion, though with 4.5-second pause we will need to continue to observe.
Would withhold beta-blockers as planned.
Would volume replete with a liter or so of IV fluid IV fluid
Await CT scan of leg
We can consider outpatient sestamibi study though this may not be mandatory
If continues with symptomatic bradycardia in the absence of negative chronotropic's, we may need to consider pacemaker implantation, hopefully as she recovers from influenza this will not be required. Likely will need outpatient ambulatory monitor.
Original Note:
Today's Communication / Plan
-
Continue management of influenza per primary service
Will arrange for OP stress testing. Continue aspirin 81mg daily
Did not tolerate Toprol 12.5mg daily as BP dropped this AM. Will stop
Follow up arranged.
Impression / Plan
-
Primary Collator: none prior to admission, initially seen by Dr. Carlos
Impression:
Presentation with syncope
Chest discomfort s/p brief CPR secondary to above
Influenza A +
Bronchitis secondary to above
Elevated troponin, suspected nonischemic myocardial injury secondary to above
Recurrent UTIs
Hyperlipidemia
Chronic left bundle branch block
COPD
Ongoing tobacco use
Weight Loss / Malnutrition
Echo 07/12/24: EF 51%, mild mid anteroseptal hypokinesis, trivial MR, mild TR
Plan:
-Patient presented after syncopal episode at urgent care after being diagnosed with influenza A. She has had poor appetite, fatigue, weakness in setting of the flu.
-Continue management of influenza per primary service.
-Elevated troponin noted, peaking at 0.153. Suspect nonischemic myocardial injury in the setting of influenza and CPR.
-Continues w/ some chest discomfort likely related to brief CPR she received in the setting of syncope. Rib xray does note a fracture deformity of the L 7th rib, but appears more chronic/remote.
-Echo 07/12 with EF 51% and mild mid anteroseptal hypokinesis as noted above. Would recommend OP ischemic evaluation once recovered from influenza.
-New to Toprol 12.5mg daily 07/12, but became orthostatic this AM with BP dropping to 72/40. Agree w/ stopping Toprol.
-Continue aspirin 81mg daily.
-LDL 85, on simvastatin 40mg daily as OP.
HPI: Patient is an 88-year-old female with past medical history of recurrent UTIs, hyperlipidemia, likely COPD, ongoing tobacco use who presented to [facility] due to syncopal episode while at urgent care for evaluation of flulike symptoms.
She tested positive for influenza. Shortly after transferring from exam table to a chair she passed out. Her granddaughter who is an ICU nurse lowered her to the floor and was unable to detect a pulse, therefore started CPR, and patient was noted
to quickly wake up. Denies prodromal symptoms however states it all happened very fast. She was brought to the ER and admitted. Cardiology consulted as troponins mildly elevated. Patient denies cardiac history, and denies chest pains prior to
admission and prior to the episode. She does report some chest discomfort at present felt to be due to CPR.
Progress Note - Collator
Subjective
Date of Service: July 13, 2024
No complaints other than rib pain. Did have some lightheadedness w/ drop in BP this AM, but feeling better now.
Objective
Labs:
07/13/24 07:25
07/13/24 07:25
Labs
Hgb 13.1 g/dL (12.0-16.0) 07/13/24 07:25
Hct 39.1 % (37.0-47.0) 07/13/24 07:25
Plt Count 165 10^3/uL (130-400) 07/13/24 07:25
Sodium 133 mmol/L (135-145) L 07/13/24 07:25
Potassium 4.1 mmol/L (3.5-5.1) 07/13/24 07:25
BUN 27 mg/dl (7-17) H 07/13/24 07:25
Creatinine 0.8 mg/dL (0.6-1.0) 07/13/24 07:25
Glucose 76 mg/dl (70-99) 07/13/24 07:25
Troponins
07/11/24 07/11/24 07/11/24
15:52 20:00 21:42
Troponin I 0.090 H* Cancelled 0.101 H*
07/12/24 07/12/24
08:26 14:08
Troponin I 0.153 H* 0.135 H*
Vital Signs and I&O:
Vital Signs
Temp Pulse Resp BP Pulse Ox
98.4 F 68 16 119/56 93
07/13/24 07:00 07/13/24 08:21 07/13/24 08:21 07/13/24 07:57 07/13/24 08:21
Vital Signs
Temp Pulse Resp BP Pulse Ox
98.4 F 68 16 119/56 93
07/13/24 07:00 07/13/24 08:21 07/13/24 08:21 07/13/24 07:57 07/13/24 08:21
Intake & Output
07/11/24 07/12/24 07/13/24 07/14/24
06:59 06:59 06:59 06:59
Intake Total 240 / 240 240 / 240
Balance 240 / 240 240 / 240
Physical Exam
Physical Exam
GEN: No distress, awake, alert, oriented x3
HEENT: supple, anicteric, mmm
LUNGS: CTA b/l, no wheezes/rales
CV: Reg, S1/S2, no murmur
EXT: No clubbing, cyanosis, or edema
NEURO: Gross non-focal
SKIN: Warm, dry, no rash
--- NOTE | 2024-07-13 11:30 | PTCARENOTE ---
Patient positive for orthostatic hypotension. Laying BP 119/56, HR 74. Sitting BP 72/40, HR 71. Patient complaining of feeling lightheaded and dizzy. This RN notified hospitalistJohn--recommended Midodrine and TEDs. Cardiology
notified--Toprol XL discontinued. No midodrine or TEDs ordered.
--- NOTE | 2024-07-13 15:23 | PTCARENOTE ---
While working with OT, patient nearly had another syncopal episode. HR dropped into the 40s, patient stated 'I feel like i am going to pass out'. Laying BP was 114/49. OT was unable to obtain sitting/standing reading due to patient's symptoms.
Cardiology PA and hospital medicine doc notified. Dr. Pichardo to come to bedside.Additionally, patient complaining of new, right hip pain characterized as sharp and stabbing, negatively impacting RLE ROM. Awaiting imaging orders from Dr. Lopez.
--- NOTE | 2024-07-13 16:18 | CM ---
Patient seen bedside.
IA completed.
Patient lives alone in a 1 story apartment with 8 steps to enter going down.
patient does not use assistive devices.
patient drives.
No hx VN or skilled rehab.
Independent prior to admission.
Patient with right hip pain.
PT recommending home with home care.
[facility], entered in [facility]
PCP: Dr Baltazar
Pharmacy: [facility]
Plan: home with VN, granddaughter jesus transport home
[2024-07-13] MEDS: LIDOCAINE 4% PATCH 1 PATCH TOPICAL (16:50)
[2024-07-13] MEDS: ULTRAM 12.5 MG PO (17:48)
[2024-07-13] MEDS: LR 1000 IV (17:49)
[2024-07-13] MEDS: DILAUDID 0.2 MG IV (18:38)
[2024-07-13] MEDS: TYLENOL 1000 MG PO (21:19)
[2024-07-13] MEDS: REMERON 7.5 MG PO (21:24)
[2024-07-14] VITALS (7 sets, daily range): BP systolic 136–168; BP diastolic 58–76; PULSE 89–94; BMI 20.6
[2024-07-14] MEDS: ULTRAM 12.5 MG PO (02:58)
[2024-07-14] MEDS: LR 1000 IV ×2 (06:08→19:46)
--- NOTE | 2024-07-14 07:28 | W.PN.HOSP.TC ---
Today's Communication/Plan
-
See plan
Assessment / Plan
Assessment / Plan
Physical Exam
General: Comfortable and Conversant
HEENT: Anicteric, Moist mucous membranes and Other
Respiratory: Rhonchi (Few scattered) and Non Labored Respirations
Cardiac: S1/S2 and Regular Rhythm
GI: Soft and Non Tender. Positive bowel sounds.
Musculoskeletal: No Cyanosis and No Edema
Skin: Warm and Dry
Neuro: Awake, Alert, Oriented x3. Cranial Nerves 2 through 12 grossly intact bilaterally. Strength and sensation grossly intact bilaterally.
Psych: Calm
Assessment/Plan
Syncope, doubt true cardiac arrest
Orthostatic Hypotension
-Orthostatic hypotension: blood pressure laying 119/56, HR 74. BP sitting 72/40, HR 71.
-At urgent care on 07/11/24, urgent care provider did not hear heart sounds and granddaughter who is an ICU nurse started CPR -- patient received 1 round of CPR and 2 rescue breaths started to wake up -- had some chest
wall pain after that, as expected
-Consulted Cardiology, appreciate their evaluation and recommendations
-Chest x-ray showed probable chronic pleural-parenchymal scarring in the lung apices; small probable post inflammatory bleb.
-Monitor on Telemetry
-Echo 07/12 with EF 51% and mild mid anteroseptal hypokinesis as noted above. Would recommend OP ischemic evaluation once recovered from influenza.
-Will consider Midodrine, but patient does have bradycardia at times
-JIMI compression hose
-Maintain bedrest for now given significant orthostatic symptoms and bradycardia upon standing
Bradycardia
-Hold beta lori which was newly started
-If patient continues with symptomatic bradycardia in the absence of negative chronotropic's, may need to consider pacemaker implantation, hopefully as she recovers from influenza this will not be required. Likely will need outpatient ambulatory
monitor.
Acute Bronchitis secondary to Influenza A
URI symptoms, weakness and fever for ~2 days prior to presentation
-Continue Tamiflu
-Continue DuoNeb PRN
New, right hip/leg pain that is sharp/stabbing (07/13/24)
On 07/14/24 described as pain starting at right knee and goes up to RLQ
-Ultrasound was negative for DVT
-Check CT Abd/Pelvis, CT RLE
Tobacco Use Disorder
-Encourage smoking cessation
-Continue Spiriva
Hyperlipidemia
-Continue simvastatin
Weight Loss / Malnutrition
-Continue mirtazapine
-Consult Dietary
Recurrent UTIs
-Continue Hiprex
DVT Prophylaxis: Lovenox
Code Status: Full Code
I spoke with patient's granddaughter (who is an ICU nurse) on 07/13/23.
Anticipated Discharge: > 48 hours
Subjective/Interval History
-
Date of Service: July 14, 2024
Patient was seen and examined. Patient reported pain extending from her right knee to the right lower quadrant of her abdomen.
Objective Data
-
Labs:
Laboratory Results
07/14/24
06:00
WBC Pending
Hgb Pending
Hct Pending
Plt Count Pending
Sodium Pending
Potassium Pending
Chloride Pending
Carbon Dioxide Pending
BUN Pending
Creatinine Pending
Glucose Pending
Calcium Pending
Total Bilirubin Pending
AST Pending
ALT Pending
Alkaline Phosphatase Pending
Vital Signs:
Vital Signs
Temp Pulse Resp BP Pulse Ox
98.1 F 76 18 151/63 94
07/14/24 03:00 07/14/24 03:00 07/14/24 03:00 07/14/24 03:00 07/14/24 03:00
I&O
07/13/24 07/14/24 07/15/24
06:59 06:59 06:59
Intake Total 240 / 240 480 / 480
Balance 240 / 240 480 / 480
[2024-07-14] MEDS: SPIRIVA RESPIMAT 2.5 MCG 2 PUFF INH (08:04)
[2024-07-14] MEDS: HIPREX 1 GRAM PO ×2 (09:13→20:26)
[2024-07-14] MEDS: TAMIFLU 30 MG PO ×2 (09:13→20:27)
[2024-07-14] MEDS: LIDOCAINE 4% PATCH 1 PATCH TOPICAL (09:13)
[2024-07-14] MEDS: LIPITOR 20 MG PO (09:13)
[2024-07-14] MEDS: LOW STRENGTH ASPIRIN 81 MG PO (09:13)
[2024-07-14] MEDS: TYLENOL 1000 MG PO ×2 (09:13→20:27)
[2024-07-14 10:28] LABS: % Basophils 0.3 % (0-2); % Immature Granulocytes 0.4 % (0-0.5); % Lymphocytes 22.3 % (20.5-51.1); % Monocytes 6.9 % (1.7-9.3); % Neutrophils 70.1 % (42.2-75.2); Absolute Lymphocytes 1.8 10^3/uL (1.2-3.4); Absolute Monocytes 0.6 10^3/uL (0.1-0.6); Absolute Neutrophils 5.6 10^3/uL (1.4-6.5); Hematocrit 34.3 % (37.0-47.0); Hemoglobin 11.4 g/dL (12.0-16.0); Mean Corp Hgb Conc. 33.2 g/dL (33.0-37.0); Mean Corpuscular Hgb 31.1 pg (27.0-31.0); Mean Corpuscular Volume 93.7 fL (81.0-99.0); Mean Platelet Volume 11.9 fL (7.4-10.4); Nucleated Red Blood Cells % 0 %; Platelet Count 149 10^3/uL (130-400); Red Blood Cell Count 3.66 10^6/uL (4.20-5.40); Red Cell Dist. Width 13.2 % (11.5-14.5); White Blood Cell Count 7.9 10^3/uL (4.8-10.8)
[2024-07-14 10:56] LABS: ALT (SGPT) 27 U/L (0-35); AST (SGOT) 51 U/L (14-36); Albumin 3.2 g/dl (3.5-5.0); Alkaline Phosphatase 52 U/L (38-126); Blood Urea Nitrogen 22 mg/dl (7-17); Calcium 8.3 mg/dl (8.4-10.2); Carbon Dioxide 28 mmol/L (22-30); Chloride 99 mmol/L (98-107); Estimated Creatinine Clearance 47 ml/min; Glucose 99 mg/dl (70-99); Potassium 3.6 mmol/L (3.5-5.1); Sodium 132 mmol/L (135-145); Total Bilirubin 0.4 mg/dl (0.2-1.3); Total Protein 5.3 g/dl (6.3-8.2); eGFR > 60.00
[2024-07-14] MEDS: OMNIPAQUE 50 ML PO (14:38)
--- NOTE | 2024-07-14 15:59 | W.PN.CARDCBS ---
Today's Communication / Plan
-
Continue to observe on telemetry given pauses that are predominantly under 4 seconds
No definitive indication for pacemaker yet
Impression / Plan
-
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 Carlos
Impression:
Presentation with syncope
Sinus pauses up to 4.6 seconds
Chest discomfort s/p brief CPR secondary to above
Influenza A +
Bronchitis secondary to above
Elevated troponin, suspected nonischemic myocardial injury secondary to above
Recurrent UTIs
Hyperlipidemia
Chronic left bundle branch block
COPD
Ongoing tobacco use
Weight Loss / Malnutrition
Echo 07/12/24: EF 51%, mild mid anteroseptal hypokinesis, trivial MR, mild TR
Plan:
She seems to be improving with regards to influenza A
She has not had lightheadedness but is mostly in bed
Monitor still shows frequent pauses, the longest has been 4.65 seconds.
Overall she feels that she is a little stronger.
At present, although her pauses are impressive, I am reluctant to recommend pacemaker implantation at this time. She has had no evidence of significant AV block, all has been related to sinus node dysfunction.
Echo is overall reassuring.
CT scan of pelvis pending for right hip/groin pain
For now, we will continue to observe on telemetry, begin therapy, discharge planning etc.
If symptomatic bradycardia, or if pauses lengthened substantially will need to move forward with pacemaker.
HPI: Patient is an 88-year-old female with past medical history of recurrent UTIs, hyperlipidemia, likely COPD, ongoing tobacco use who presented to [facility] due to syncopal episode while at urgent care for evaluation of flulike symptoms.
She tested positive for influenza. Shortly after transferring from exam table to a chair she passed out. Her granddaughter who is an ICU nurse lowered her to the floor and was unable to detect a pulse, therefore started CPR, and patient was noted
to quickly wake up. Denies prodromal symptoms however states it all happened very fast. She was brought to the ER and admitted. Cardiology consulted as troponins mildly elevated. Patient denies cardiac history, and denies chest pains prior to
admission and prior to the episode. She does report some chest discomfort at present felt to be due to CPR.
Progress Note - Assembly Line Machine Operator
Subjective
Date of Service: July 14, 2024:
Methamphetamine, atorvastatin 20 mg a day, Spiriva, Tamiflu, Remeron, aspirin 81 mg a day, Lovenox, Tylenol, lidocaine patch, lactated Ringer's, DuoNebs as needed
143/63, pulse 89, resp rate 16, relatively frail, body habitus of COPD, few crackles in lungs, regular rate and rhythm JVD okay, abdomen benign right proximal anterolateral quadriceps tenderness and extreme pain, without substantial edema
Hemoglobin 11.4, white count 7.9, sodium 132, potassium 3.6, BUN 22, creatinine 0.6
Objective
Labs:
07/14/24 08:33
07/14/24 08:33
Labs
Hgb 11.4 g/dL (12.0-16.0) L 07/14/24 08:33
Hct 34.3 % (37.0-47.0) L 07/14/24 08:33
Plt Count 149 10^3/uL (130-400) 07/14/24 08:33
Sodium 132 mmol/L (135-145) L 07/14/24 08:33
Potassium 3.6 mmol/L (3.5-5.1) 07/14/24 08:33
BUN 22 mg/dl (7-17) H 07/14/24 08:33
Creatinine 0.6 mg/dL (0.6-1.0) 07/14/24 08:33
Glucose 99 mg/dl (70-99) 07/14/24 08:33
Troponins
07/11/24 07/11/24 07/11/24
15:52 20:00 21:42
Troponin I 0.090 H* Cancelled 0.101 H*
07/12/24 07/12/24
08:26 14:08
Troponin I 0.153 H* 0.135 H*
Vital Signs and I&O:
Vital Signs
Temp Pulse Resp BP Pulse Ox
36.4 C 89 16 143/63 90
07/14/24 11:00 07/14/24 11:00 07/14/24 11:00 07/14/24 11:00 07/14/24 11:00
Vital Signs
Temp Pulse Resp BP Pulse Ox
36.4 C 89 16 143/63 90
07/14/24 11:00 07/14/24 11:00 07/14/24 11:00 07/14/24 11:00 07/14/24 11:00
Intake & Output
07/12/24 07/13/24 07/14/24 07/15/24
07:59 07:59 07:59 07:59
Intake Total 240 / 240 240 / 240 480 / 480
Balance 240 / 240 240 / 240 480 / 480
Physical Exam
Physical Exam
See above
[2024-07-14] MEDS: LOVENOX 40 MG SC (19:06)
[2024-07-14] MEDS: REMERON 7.5 MG PO (20:27)
[2024-07-15 03:00] VITALS: BP 115/98
[2024-07-15] MEDS: LR 1000 IV (05:29)
[2024-07-15 07:07] LABS: Hematocrit 30.5 % (37.0-47.0); Hemoglobin 10.3 g/dL (12.0-16.0); Mean Corp Hgb Conc. 33.8 g/dL (33.0-37.0); Mean Corpuscular Hgb 31.2 pg (27.0-31.0); Mean Corpuscular Volume 92.4 fL (81.0-99.0); Mean Platelet Volume 11.9 fL (7.4-10.4); Platelet Count 144 10^3/uL (130-400); Red Cell Dist. Width 13.2 % (11.5-14.5); White Blood Cell Count 9.3 10^3/uL (4.8-10.8)
--- NOTE | 2024-07-15 07:15 | PTCARENOTE ---
Patient reports feeling worse this AM. HR tachy on monitor from 90-100s, briefly going to 120s. O2 sat ~89% on 2L. O2 increased to 3L, patient now sating 91%. Temp 100.6. Patient also reports slight dizziness with raising HOB. Dr. Lopez
contacted and updated. IVF discontinued. Order placed for CT of chest. Patient now resting in bed, appears comfortable.
[2024-07-15 07:35] VITALS: BP 169/83
[2024-07-15 07:35] LABS: ALT (SGPT) 33 U/L (0-35); AST (SGOT) 71 U/L (14-36); Albumin 3.2 g/dl (3.5-5.0); Alkaline Phosphatase 54 U/L (38-126); Blood Urea Nitrogen 12 mg/dl (7-17); Calcium 8.4 mg/dl (8.4-10.2); Carbon Dioxide 29 mmol/L (22-30); Chloride 99 mmol/L (98-107); Estimated Creatinine Clearance 47 ml/min; Glucose 91 mg/dl (70-99); Magnesium 1.9 mg/dl (1.6-2.3); Potassium 3.4 mmol/L (3.5-5.1); Sodium 135 mmol/L (135-145); Total Bilirubin 0.7 mg/dl (0.2-1.3); Total Protein 5.2 g/dl (6.3-8.2); eGFR > 60.00
--- NOTE | 2024-07-15 07:46 | W.PN.HOSP.TC ---
Today's Communication/Plan
-
Patient was slightly more hypoxic this morning with wet cough and mild tachycardia -- stopped IV fluids with improvement
Fever at this point in time suspected from Influenza/Bronchitis, no concern for a bacterial infection
RT iliacus muscle hematoma stable
Discussed with nurse: gradually ease patient into activity to see whether she can tolerate (she nearly passed out with PT/OT several days ago and has been maintained on bedrest as she recovers from Flu)
Will need to monitor for bradycardia or lightheadedness while gradually easing into activity
Assessment / Plan
Assessment / Plan
Physical Exam
General: Comfortable and Conversant
HEENT: Anicteric, Moist mucous membranes and Other
Respiratory: Rhonchi (Few scattered) and Non Labored Respirations
Cardiac: S1/S2 and Regular Rhythm
GI: Soft and Non Tender. Positive bowel sounds.
Musculoskeletal: No Cyanosis and No Edema
Skin: Warm and Dry
Neuro: Awake, Alert, Oriented x3. Cranial Nerves 2 through 12 grossly intact bilaterally. Strength and sensation grossly intact bilaterally.
Psych: Calm
Assessment/Plan
Syncope, doubt true cardiac arrest
Orthostatic Hypotension
-Orthostatic hypotension: blood pressure laying 119/56, HR 74. BP sitting 72/40, HR 71.
-At urgent care on 07/11/24, urgent care provider did not hear heart sounds and granddaughter who is an ICU nurse started CPR -- patient received 1 round of CPR and 2 rescue breaths started to wake up -- had some chest
wall pain after that, as expected
-Consulted Cardiology, appreciate their evaluation and recommendations
-Chest x-ray showed probable chronic pleural-parenchymal scarring in the lung apices; small probable post inflammatory bleb.
-Monitor on Telemetry
-Echo 07/12 with EF 51% and mild mid anteroseptal hypokinesis as noted above. Would recommend OP ischemic evaluation once recovered from influenza.
-Will consider Midodrine, but patient does have bradycardia at times
-JIMI compression hose
Fever 100.6 F on 07/15/24
Worsening Hypoxia, Tachycardia on 07/15/24 - TACHYCARDIA RESOLVED
Wet Cough on 07/15/24 morning
Pleural parenchymal scarring at both lung apices with a 3.5 cm left apical bleb on CT Imaging from 07/15/24
Mild additional emphysematous changes on CT Imaging from 07/15/24
Minimal bilateral pleural effusions with dependent and compressive atelectasis at the posterior lung bases on CT Imaging
-Stopped IV fluids on 07/15/24 which possibly caused some fluid overload and elevation in blood pressure, along with hypoxia
-RLE ultrasound showed no DVT, and CT Chest showed no PE; on exam, no signs or symptoms or DVT on LLE.....so less likely a VTE causing fever.
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
-Fever could be from Influenza (tested positive here on 07/11/24) and associated bronchitis, or maybe also from iliacus hematoma? COVID negative.
-Patient does not have leukocytosis and with normal to elevated blood pressure and resolved tachycardia, hold off blood cultures at this point in time. Heart rate has also improved.
-Abdomen/Pelvis CT (which included CT Chest) showed no pulmonary embolism
-If patient has fever again, low threshold to start antibiotics
Bradycardia
-Bradycardia seems like it has resolved -- continue to monitor on telemetry
-Hold beta lori which was newly started
-If patient has symptomatic bradycardia again in the absence of negative chronotropic's, may need to consider pacemaker implantation, hopefully as she recovers from influenza this will not be required. Likely will need outpatient ambulatory monitor.
Acute Bronchitis secondary to Influenza A
URI symptoms, weakness and fever for ~2 days prior to presentation
-Continue Tamiflu
-Continue DuoNeb PRN
Hypokalemia
-Potassium supplemented
-Monitor BMP
New, right hip/leg pain that is sharp/stabbing (07/13/24) Secondary to Right iliacus intramuscular hematoma
On 07/14/24 described as pain starting at right knee and goes up to RLQ
Right iliacus intramuscular hematoma -- not traumatic as patient did not fall
-Ultrasound was negative for DVT on the right side
-CT imaging of abdomen pelvis and RLE: 'Right iliacus intramuscular hematoma.....estimated size of the right iliacus intramuscular hematoma is 8.5 cm transverse by 5 cm AP, with a length of approximately 14 cm' and '....mild to moderate venous
distention involving the distal femoral vein, appearing somewhat bilobed in configuration, with the proximal distended component measuring approximately 1.6 cm and the more distal distended component measuring 1.4 cm.'
-Stopped Aspirin (okay to stop Aspirin as per cardiology)
-Stopped Lovenox
-Repeat CT imaging (done for PE given patient's increased oxygen requirement on 07/15/24) included the abdomen pelvis, and it showed stable size of the hematoma
-Appreciate vascular surgery input: no surgery needed at this time, but surgery only for hard indications (rapid expansion, hemodynamic instability, progressive motor compromise).
Tobacco Use Disorder
-Encourage smoking cessation
-Continue Spiriva
Vascular calcification including coronary artery calcification
Hyperlipidemia
-Continue simvastatin
Weight Loss / Malnutrition
-Continue mirtazapine
-Consult Dietary
History of Recurrent UTIs -- bladder sutured to pelvic wall
Recurrent UTIs
-Continue Hiprex
Colonic Diverticula
Small bilateral renal cysts
Mild concentric bulging of the L5-S1 intervertebral disc
DVT Prophylaxis: Lovenox
Code Status: Full Code
I spoke with patient's granddaughter (who is an ICU nurse) on 07/13/24. All questions and concerns were answered to satisfaction.
I spoke with patient's granddaughter (who is an ICU nurse) on 07/15/24. All questions and concerns were answered to satisfaction.
Anticipated Discharge: 24 - 48 hours
Subjective/Interval History
-
Date of Service: July 15, 2024
Patient was seen and examined. She had fever this morning as well as some cough.
Objective Data
-
Labs:
Laboratory Results
07/15/24
06:08
WBC 9.3
Hgb 10.3 L
Hct 30.5 L
Plt Count 144
Sodium 135
Potassium 3.4 L
Chloride 99
Carbon Dioxide 29
BUN 12
Creatinine 0.5 L
Glucose 91
Calcium 8.4
Total Bilirubin 0.7
AST 71 H
ALT 33
Alkaline Phosphatase 54
Vital Signs:
Vital Signs
Temp Pulse Resp BP Pulse Ox
100.6 F H 110 18 169/83 89
07/15/24 07:35 07/15/24 07:35 07/15/24 07:35 07/15/24 07:35 07/15/24 07:35
I&O
07/14/24 07/15/24 07/16/24
06:59 06:59 06:59
Intake Total 480 / 480 1000 / 1000
Balance 480 / 480 1000 / 1000
[2024-07-15] MEDS: SPIRIVA RESPIMAT 2.5 MCG 2 PUFF INH (08:14)
[2024-07-15 08:27] LABS: % Basophils 0.2 % (0-2); % Eosinophils 0.1 % (0-6); % Immature Granulocytes 0.5 % (0-0.5); % Monocytes 7.7 % (1.7-9.3); % Neutrophils 65.5 % (42.2-75.2); Absolute Immature Granulocytes 0.1 10^3/uL (0-0.05); Absolute Lymphocytes 2.4 10^3/uL (1.2-3.4); Absolute Monocytes 0.7 10^3/uL (0.1-0.6); Absolute Neutrophils 6.1 10^3/uL (1.4-6.5); Nucleated Red Blood Cells % 0 %
[2024-07-15] MEDS: LIDOCAINE 4% PATCH 1 PATCH TOPICAL (09:53)
[2024-07-15] MEDS: KCL 40 MEQ PO (09:54)
[2024-07-15] MEDS: TAMIFLU 30 MG PO ×2 (09:54→20:40)
[2024-07-15] MEDS: TYLENOL 1000 MG PO ×2 (09:54→20:40)
[2024-07-15] MEDS: HIPREX 1 GRAM PO ×2 (09:54→20:40)
[2024-07-15] MEDS: LIPITOR 20 MG PO (09:54)
--- NOTE | 2024-07-15 10:21 | CON.VAS ---
Consultation
Consultation Request
Reason for Consultation: R iliacus hematoma
Medical History
-
Chief Complaint: R hip pain
History of Present Illness:
88 yo F started experiencing R hip pain around 2 days ago now. Says she experiences pain in right knee as well which radiates to her right lower abdomen, and it is painful for her to flex at her hip. CT showed iliacus hematoma. She does not take AC
at home. She did have one round of CPR on 07/11/24 for an arrest. Denies any numbness or changes in sensation in her right leg. She denies other trauma to the area but states at baseline she is very active and a 'tough old bitty.'
Past Medical History
Past Medical History: CAD
Social History
Tobacco: Non-Smoker
Personal:
Family History
Family History: Reviewed & Not Pertinent
Allergies / Home Medications
Allergy/AdvReac Type Severity Reaction Status Date / Time
Penicillins Allergy Rash Verified 12/07/18 19:47
�Medication �Instructions �Recorded �Confirmed �Type
methenamine hippurate 1 gram tablet 1 g PO BID 07/11/24 07/11/24 History
mirtazapine 7.5 mg tablet 7.5 mg PO DAILY 07/11/24 07/11/24 History
simvastatin 40 mg tablet 40 mg PO DAILY 07/11/24 07/11/24 History
tiotropium bromide 2.5 2 puff inhalation DAILY 07/11/24 07/11/24 History
mcg/actuation mist for inhalation
(Spiriva Respimat)
Physical Exam
Vital Signs
Temp Pulse Resp BP Pulse Ox
100.6 F H 87 16 169/83 95
07/15/24 07:35 07/15/24 08:17 07/15/24 08:17 07/15/24 07:35 07/15/24 08:17
Lab Results
07/15/24 06:08
07/15/24 06:08
Troponin I 0.135 ng/ml H* 07/12/24 14:08
Physical Exam
General: Well Developed
HEENT: Normocephalic
Cardiac: S1/S2
Skin: Warm
Psych: Calm
Pulses: Bilateral Femoral: +2, Right Dorsalis Pedis: Doppler and Right Posterior Tibial: Doppler
Assessment / Plan
-
88 yo F with right iliacus hematoma
-this is either spontaneous or perhaps a result of trauma during her arrest several days ago
-CT shows moderate sized hematoma, no obvious extravasation. No evidence of compartment syndrome on exam. No motor/sensory compromise.
-Would recommend repeating CT to ensure stability. CTA abd/pelvis would be preferable but even a non con CT will at least give us a size estimate. Give her age and comorbities I would only recommend surgery for hard indications (rapid expansion,
hemodynamic instability, progressive motor compromise).
Data Reviewed
-
CT Scan: Image Personally Visualized and interpreted
[2024-07-15 11:00] VITALS: BP 140/63
[2024-07-15 11:00] LABS: COVID-19 Antigen Negative (Negative)
--- NOTE | 2024-07-15 19:08 | W.PN.CARDCBS ---
Today's Communication / Plan
-
Continue current regimen
No further pauses
Okay for discharge planning
Consider outpatient monitor
Impression / Plan
-
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 Carlos
Impression:
Presentation with syncope
Sinus pauses up to 4.6 seconds
Chest discomfort s/p brief CPR secondary to above
Influenza A +
Bronchitis secondary to above
Elevated troponin, suspected nonischemic myocardial injury secondary to above
Recurrent UTIs
Hyperlipidemia
Chronic left bundle branch block
COPD
Ongoing tobacco use
Weight Loss / Malnutrition
Right pelvic hematoma with 3 g hemoglobin drop
Echo 07/12/24: EF 51%, mild mid anteroseptal hypokinesis, trivial MR, mild TR
Plan:
Overall she is doing better and as she recovers from the flu and has been hydrated, it seems that her sinus pauses and bradycardia has disappeared. We will continue to observe overnight.
She has a 9 cm right pelvic hematoma which is apparently stable.
If anything, she is relatively tachycardic on the monitor. Blood pressure is modestly elevated but at this point would not treat.
From cardiac standpoint okay to begin discharge planning. We can consider an outpatient monitor, though I am not certain that it is mandatory.
At this point it seems unlikely that she will need a pacemaker.
HPI: Patient is an 88-year-old female with past medical history of recurrent UTIs, hyperlipidemia, likely COPD, ongoing tobacco use who presented to [facility] due to syncopal episode while at urgent care for evaluation of flulike symptoms.
She tested positive for influenza. Shortly after transferring from exam table to a chair she passed out. Her granddaughter who is an ICU nurse lowered her to the floor and was unable to detect a pulse, therefore started CPR, and patient was noted
to quickly wake up. Denies prodromal symptoms however states it all happened very fast. She was brought to the ER and admitted. Cardiology consulted as troponins mildly elevated. Patient denies cardiac history, and denies chest pains prior to
admission and prior to the episode. She does report some chest discomfort at present felt to be due to CPR.
Progress Note - Director Of Staff Development
Subjective
Date of Service: July 15, 2024:
She complains of cough, asked when it will improve, right proximal anterolateral thigh pain slightly better
Medications: Methenamine, atorvastatin, Spiriva, Tamiflu, Remeron, aspirin 81 mg a day on hold, Lovenox on hold, acetaminophen, lidocaine patch, DuoNebs, had been receiving IV fluid
140/63, pulse 84, respiratory rate 16, afebrile, sats 99%, head neck exam unremarkable, lungs with crackles,, regular rate and rhythm, no obvious murmurs, JVD okay, abdomen benign, still with sense of fullness right proximal anterolateral thigh,
weight is 47.7 kg up 1.4 kg
Hemoglobin 10.3, overall has dropped about 3 g, platelets 144, CO2 29, BUN and creatinine 12 and 0.9, potassium 3.4, AST 71,
CT of chest abdomen pelvis with 9 cm right iliacis intramuscular hematoma, no pulmonary embolus, minimal bilateral effusions
Telemetry: No further pauses, if anything patient somewhat tachycardic
Objective
Labs:
07/15/24 06:08
07/15/24 06:08
Labs
Hgb 10.3 g/dL (12.0-16.0) L 07/15/24 06:08
Hct 30.5 % (37.0-47.0) L 07/15/24 06:08
Plt Count 144 10^3/uL (130-400) 07/15/24 06:08
Sodium 135 mmol/L (135-145) 07/15/24 06:08
Potassium 3.4 mmol/L (3.5-5.1) L 07/15/24 06:08
BUN 12 mg/dl (7-17) 07/15/24 06:08
Creatinine 0.5 mg/dL (0.6-1.0) L 07/15/24 06:08
Glucose 91 mg/dl (70-99) 07/15/24 06:08
Vital Signs and I&O:
Vital Signs
Temp Pulse Resp BP Pulse Ox
36.6 C 84 16 140/63 95
07/15/24 11:00 07/15/24 11:00 07/15/24 11:00 07/15/24 11:00 07/15/24 11:00
Vital Signs
Temp Pulse Resp BP Pulse Ox
36.6 C 84 16 140/63 95
07/15/24 11:00 07/15/24 11:00 07/15/24 11:00 07/15/24 11:00 07/15/24 11:00
Intake & Output
07/13/24 07/14/24 07/15/24 07/16/24
07:59 07:59 07:59 07:59
Intake Total 240 / 240 480 / 480 1000 / 1000 600 / 600
Balance 240 / 240 480 / 480 1000 / 1000 600 / 600
Physical Exam
Physical Exam
See above
[2024-07-15 19:29] VITALS: BMI 20.5
[2024-07-15 19:30] VITALS: BP 140/52; BP 152/67; PULSE 97; PULSE 98
[2024-07-15] MEDS: DUONEB 3 ML INH (20:12)
[2024-07-15] MEDS: REMERON 7.5 MG PO (21:07)
[2024-07-15 23:30] VITALS: BP 124/52
[2024-07-16] VITALS (8 sets, daily range): BP systolic 95–126; BP diastolic 47–80; PULSE 86–104; O2SAT 87; BMI 20.4
[2024-07-16] MEDS: DUONEB 3 ML INH (04:07)
[2024-07-16] MEDS: ULTRAM 25 MG PO (05:07)
[2024-07-16] MEDS: SPIRIVA RESPIMAT 2.5 MCG 2 PUFF INH (07:56)
[2024-07-16] MEDS: LIDOCAINE 4% PATCH 1 PATCH TOPICAL (09:05)
[2024-07-16] MEDS: TYLENOL 1000 MG PO ×2 (09:05→20:15)
[2024-07-16] MEDS: HIPREX 1 GRAM PO ×2 (09:05→20:15)
[2024-07-16] MEDS: TAMIFLU 30 MG PO ×2 (09:05→20:48)
[2024-07-16] MEDS: LIPITOR 20 MG PO (09:05)
[2024-07-16 09:21] LABS: Hematocrit 26.4 % (37.0-47.0); Hemoglobin 9.1 g/dL (12.0-16.0); Mean Corp Hgb Conc. 34.5 g/dL (33.0-37.0); Mean Corpuscular Hgb 31.8 pg (27.0-31.0); Mean Corpuscular Volume 92.3 fL (81.0-99.0); Platelet Count 150 10^3/uL (130-400); Red Blood Cell Count 2.86 10^6/uL (4.20-5.40); Red Cell Dist. Width 13.3 % (11.5-14.5); White Blood Cell Count 9.3 10^3/uL (4.8-10.8)
[2024-07-16 09:54] LABS: ALT (SGPT) 56 U/L (0-35); AST (SGOT) 106 U/L (14-36); Albumin 2.8 g/dl (3.5-5.0); Alkaline Phosphatase 51 U/L (38-126); Blood Urea Nitrogen 11 mg/dl (7-17); Calcium 8.2 mg/dl (8.4-10.2); Carbon Dioxide 29 mmol/L (22-30); Chloride 101 mmol/L (98-107); Estimated Creatinine Clearance 47 ml/min; Glucose 92 mg/dl (70-99); Potassium 3.9 mmol/L (3.5-5.1); Sodium 133 mmol/L (135-145); Total Bilirubin 0.5 mg/dl (0.2-1.3); Total Protein 4.9 g/dl (6.3-8.2); eGFR > 60.00
[2024-07-16 10:26] LABS: % Basophils 0.2 % (0-2); % Eosinophils 0.1 % (0-6); % Immature Granulocytes 0.8 % (0-0.5); % Lymphocytes 20.9 % (20.5-51.1); % Monocytes 8.4 % (1.7-9.3); % Neutrophils 69.6 % (42.2-75.2); Absolute Immature Granulocytes 0.1 10^3/uL (0-0.05); Absolute Lymphocytes 1.9 10^3/uL (1.2-3.4); Absolute Monocytes 0.8 10^3/uL (0.1-0.6); Absolute Neutrophils 6.5 10^3/uL (1.4-6.5); Nucleated Red Blood Cells % 0 %
[2024-07-16 13:55] LABS: NT-proBNP 2770 pg/ml
--- NOTE | 2024-07-16 14:08 | W.PN.CARDCBS ---
Addendum entered and electronically signed by Kumar Pichardo MD 07/16/24 17:26:
Episode of nonsustained VT on telemetry, given hypotension, will not add beta-lori. Will continue to observe on telemetry.
Original Note:
Today's Communication / Plan
-
proBNP is elevated, but hold Lasix
Discharge planning
We will arrange for cardiac follow-up
Impression / Plan
-
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 Carlos
Impression:
Presentation with syncope
Sinus pauses up to 4.6 seconds
Chest discomfort s/p brief CPR secondary to above
Influenza A +
Bronchitis secondary to above
Elevated troponin, suspected nonischemic myocardial injury secondary to above
Recurrent UTIs
Hyperlipidemia
Chronic left bundle branch block
COPD
Ongoing tobacco use
Weight Loss / Malnutrition
Right pelvic hematoma with 3 g hemoglobin drop
Echo 07/12/24: EF 51%, mild mid anteroseptal hypokinesis, trivial MR, mild TR
Plan:
Regarding her sinus pauses, these have disappeared as she recovers from influenza A and presumably has been hydrated. It is unlikely that pacemaker implantation will be required.
Her proBNP is elevated, but she does not have evidence of heart failure on exam and her echocardiogram was fairly unremarkable, with a wall motion abnormality that could relate to her bundle branch block. She is relatively hypotensive so I did not
treat with furosemide. Would continue to monitor for volume overload.
Her 9 cm pelvic hematoma is causing her less discomfort. Currently not on heparin or anticoagulants.
From my standpoint, okay to proceed with discharge planning. She will need a rehab stay.
We will arrange for outpatient cardiac follow-up. I did not order a monitor but the need for this could be determined at follow-up.
HPI: Patient is an 88-year-old female with past medical history of recurrent UTIs, hyperlipidemia, likely COPD, ongoing tobacco use who presented to [facility] due to syncopal episode while at urgent care for evaluation of flulike symptoms.
She tested positive for influenza. Shortly after transferring from exam table to a chair she passed out. Her granddaughter who is an ICU nurse lowered her to the floor and was unable to detect a pulse, therefore started CPR, and patient was noted
to quickly wake up. Denies prodromal symptoms however states it all happened very fast. She was brought to the ER and admitted. Cardiology consulted as troponins mildly elevated. Patient denies cardiac history, and denies chest pains prior to
admission and prior to the episode. She does report some chest discomfort at present felt to be due to CPR.
Progress Note - Cylinder Machine Operator Pulp Drier
Subjective
Date of Service: July 16, 2024:
She offers no complaints and feels well
Medications: methenamine, DuoNebs, atorvastatin, Spiriva, Tamiflu, Remeron, aspirin 81 mg daily, subcu Lovenox, lidocaine patch
121/56, 95/47, pulse 98, respiratory rate 20, afebrile, weight is 47.3 kg, stable, frail, cachectic, pleasant no distress, some temporal wasting, diminished breath sounds in bases, neck veins okay, very soft systolic murmur, abdomen benign
extremities without substantial edema
proBNP is 2770
Hemoglobin 9.1, platelets are 150, sodium 133, potassium 3.9, BUN and creatinine are 11 and 0.9, AST is 106, had been 71 ALT is 56, had been 33
Telemetry: No further pauses
Objective
Labs:
07/16/24 08:37
07/16/24 08:37
Labs
Hgb 9.1 g/dL (12.0-16.0) L 07/16/24 08:37
Hct 26.4 % (37.0-47.0) L 07/16/24 08:37
Plt Count 150 10^3/uL (130-400) 07/16/24 08:37
Sodium 133 mmol/L (135-145) L 07/16/24 08:37
Potassium 3.9 mmol/L (3.5-5.1) 07/16/24 08:37
BUN 11 mg/dl (7-17) 07/16/24 08:37
Creatinine 0.5 mg/dL (0.6-1.0) L 07/16/24 08:37
Glucose 92 mg/dl (70-99) 07/16/24 08:37
Vital Signs and I&O:
Vital Signs
Temp Pulse Resp BP Pulse Ox
36.6 C 98 20 95/47 98
07/16/24 11:03 07/16/24 11:03 07/16/24 11:03 07/16/24 11:03 07/16/24 11:03
Vital Signs
Temp Pulse Resp BP Pulse Ox
36.6 C 98 20 95/47 98
07/16/24 11:03 07/16/24 11:03 07/16/24 11:03 07/16/24 11:03 07/16/24 11:03
Intake & Output
07/14/24 07/15/24 07/16/24 07/17/24
07:59 07:59 07:59 07:59
Intake Total 480 / 480 1000 / 1000 600 / 600
Balance 480 / 480 1000 / 1000 600 / 600
Physical Exam
Physical Exam
See above
--- NOTE | 2024-07-16 14:23 | CM ---
Addendum entered by Mary Jo Waller 07/16/24 16:49:
manager of purchasing spoke with patient's granddaughter, Kyara and referrals sent to [facility], [facility] and [facility].
Addendum entered by Mary Jo Waller 07/16/24 16:44:
Patient is agreeable to [facility], referral sent to [facility].
Original Note:
manager of purchasing spoke with physical therapy who are recommending skilled placement, options reviewed with patient and a list of Medicare.gov facilities provided to patient.
Plan; Skilled placement, patient is currently requiring 3 liters of oxygen.
--- NOTE | 2024-07-16 15:38 | W.PN.HOSP.TC ---
Today's Communication/Plan
-
Follow HH
DC planning
Assessment / Plan
Assessment / Plan
Assessment/Plan
Syncope, doubt true cardiac arrest
Orthostatic Hypotension
-Orthostatic hypotension: blood pressure laying 119/56, HR 74. BP sitting 72/40, HR 71 initially
-At urgent care on 07/11/24, urgent care provider did not hear heart sounds and granddaughter who is an ICU nurse started CPR -- patient received 1 round of CPR and 2 rescue breaths started to wake up -- had some chest
wall pain after that, as expected
-Consulted Cardiology, appreciate their evaluation and recommendations
-Chest x-ray showed probable chronic pleural-parenchymal scarring in the lung apices; small probable post inflammatory bleb.
-Monitor on Telemetry
-Echo 07/12 with EF 51% and mild mid anteroseptal hypokinesis as noted above. Would recommend OP ischemic evaluation once recovered from influenza.
-JIMI compression hose
Fever 100.6 F on 07/15/24
Worsening Hypoxia, Tachycardia on 07/15/24 - TACHYCARDIA RESOLVED
Wet Cough on 07/15/24 morning
Pleural parenchymal scarring at both lung apices with a 3.5 cm left apical bleb on CT Imaging from 07/15/24
Mild additional emphysematous changes on CT Imaging from 07/15/24
Minimal bilateral pleural effusions with dependent and compressive atelectasis at the posterior lung bases on CT Imaging
-RLE ultrasound showed no DVT, and CT Chest showed no PE; on exam, no signs or symptoms or DVT on LLE.....so less likely a VTE causing fever.
-No clear source of bacterial infection, no suggestion of pneumonia on CT Chest, no UTI signs or symptoms, no new skin redness, no concern for PIT STEWARD infection
-Fever could be from Influenza (tested positive here on 07/11/24) and associated bronchitis, or maybe also from iliacus hematoma? COVID negative. Fever resolved.
-Patient does not have leukocytosis and with normal to elevated blood pressure and resolved tachycardia, hold off blood cultures at this point in time. Heart rate has also improved.
-Abdomen/Pelvis CT (which included CT Chest) showed no pulmonary embolism
- Follow clinically
Bradycardia
-Bradycardia seems like it has resolved -- continue to monitor on telemetry
-Hold beta lori which was newly started
-If patient has symptomatic bradycardia again in the absence of negative chronotropic's, may need to consider pacemaker implantation, hopefully as she recovers from influenza this will not be required. Likely will need outpatient ambulatory monitor.
Acute Bronchitis secondary to Influenza A
URI symptoms, weakness and fever for ~2 days prior to presentation
-Continue Tamiflu course
-Continue DuoNeb PRN
New, right hip/leg pain that is sharp/stabbing (07/13/24) Secondary to Right iliacus intramuscular hematoma
On 07/14/24 described as pain starting at right knee and goes up to RLQ
Right iliacus intramuscular hematoma -- not traumatic as patient did not fall
-Ultrasound was negative for DVT on the right side
-CT imaging of abdomen pelvis and RLE: 'Right iliacus intramuscular hematoma.....estimated size of the right iliacus intramuscular hematoma is 8.5 cm transverse by 5 cm AP, with a length of approximately 14 cm' and '....mild to moderate venous
distention involving the distal femoral vein, appearing somewhat bilobed in configuration, with the proximal distended component measuring approximately 1.6 cm and the more distal distended component measuring 1.4 cm.'
-Stopped Aspirin (okay to stop Aspirin as per cardiology)
-Stopped Lovenox
-Repeat CT imaging (done for PE given patient's increased oxygen requirement on 07/15/24) included the abdomen pelvis, and it showed stable size of the hematoma
-Appreciate vascular surgery input: no surgery needed at this time, but surgery only for hard indications (rapid expansion, hemodynamic instability, progressive motor compromise).
Acute blood loss anemia -from intramucular hematoma .
Follow HH closely. NO external obvious bleeding.
Tobacco Use Disorder
-Encourage smoking cessation
-Continue Spiriva
Vascular calcification including coronary artery calcification
Hyperlipidemia
-Continue simvastatin
Weight Loss / Malnutrition
-Continue mirtazapine
-Consult Dietary
History of Recurrent UTIs -- bladder sutured to pelvic wall
Recurrent UTIs
-Continue Hiprex
Colonic Diverticula
Small bilateral renal cysts
Mild concentric bulging of the L5-S1 intervertebral disc
DVT Prophylaxis: Lovenox
Code Status: Full Code
Anticipated Discharge: Within 24 hours
Subjective/Interval History
-
Date of Service: July 16, 2024
Patient feels improved since admission.
Does not feel achy. No fevers. No chills.
Breathing okay. Not normally on oxygen at home but requiring 3 L via nasal cannula.
She is sore in her chest from CPR. Deep breaths are a problem. No focal point of tenderness.
No nausea vomiting.
Right leg pain is better able to move it better.
Objective Data
-
Labs:
Laboratory Results
07/16/24
08:37
WBC 9.3
Hgb 9.1 L
Hct 26.4 L
Plt Count 150
Sodium 133 L
Potassium 3.9
Chloride 101
Carbon Dioxide 29
BUN 11
Creatinine 0.5 L
Glucose 92
Calcium 8.2 L
Total Bilirubin 0.5
AST 106 H
ALT 56 H
Alkaline Phosphatase 51
Vital Signs:
Vital Signs
Temp Pulse Resp BP Pulse Ox
98.1 F 88 20 112/54 97
07/16/24 15:18 07/16/24 15:18 07/16/24 15:18 07/16/24 15:18 07/16/24 15:18
I&O
07/15/24 07/16/24 07/17/24
06:59 06:59 06:59
Intake Total 1000 / 1000 600 / 600
Balance 1000 / 1000 600 / 600
Review of Systems
-
Constitutional: Denies Fever
EENT: Denies Sore Throat
Respiratory: Denies Cough
Abdomen/GI: Denies Abdominal Pain
Neuro: Denies Dizzy
Physical Exam
-
General: Comfortable
Respiratory: Clear to Auscultation and Non Labored Respirations; Negative Accessory Resp Muscle Use
Cardiac: Regular Rhythm and S1/S2
GI: Soft and Nontender
Neuro: AO x 3
Psych: Calm
Data Reviewed
-
Labs: Labs Reviewed by me
[2024-07-16] MEDS: MUCINEX 600 MG PO (20:15)
[2024-07-16] MEDS: REMERON 7.5 MG PO (23:05)
[2024-07-17] VITALS (7 sets, daily range): BP systolic 85–154; BP diastolic 54–76; PULSE 83–111; O2SAT 87–96; BMI 19.9
[2024-07-17] MEDS: SPIRIVA RESPIMAT 2.5 MCG 2 PUFF INH (06:14)
[2024-07-17] MEDS: LIPITOR 20 MG PO (09:25)
[2024-07-17] MEDS: MUCINEX 600 MG PO ×2 (09:25→20:06)
[2024-07-17] MEDS: HIPREX 1 GRAM PO ×2 (09:25→20:06)
[2024-07-17] MEDS: TYLENOL 1000 MG PO ×2 (09:25→20:06)
[2024-07-17] MEDS: LIDOCAINE 4% PATCH 1 PATCH TOPICAL (09:26)
[2024-07-17 09:27] LABS: % Basophils 0.3 % (0-2); % Eosinophils 0.6 % (0-6); % Immature Granulocytes 0.9 % (0-0.5); % Lymphocytes 24.9 % (20.5-51.1); % Monocytes 8.4 % (1.7-9.3); % Neutrophils 64.9 % (42.2-75.2); Absolute Eosinophils 0.1 10^3/uL (0-0.7); Absolute Immature Granulocytes 0.1 10^3/uL (0-0.05); Absolute Lymphocytes 2.5 10^3/uL (1.2-3.4); Absolute Monocytes 0.9 10^3/uL (0.1-0.6); Absolute Neutrophils 6.6 10^3/uL (1.4-6.5); Hematocrit 26.7 % (37.0-47.0); Hemoglobin 9.2 g/dL (12.0-16.0); Mean Corp Hgb Conc. 34.5 g/dL (33.0-37.0); Mean Corpuscular Hgb 32.1 pg (27.0-31.0); Mean Platelet Volume 11.5 fL (7.4-10.4); Nucleated Red Blood Cells % 0 %; Platelet Count 217 10^3/uL (130-400); Red Blood Cell Count 2.87 10^6/uL (4.20-5.40); Red Cell Dist. Width 13.4 % (11.5-14.5); White Blood Cell Count 10.1 10^3/uL (4.8-10.8)
[2024-07-17 09:52] LABS: ALT (SGPT) 66 U/L (0-35); AST (SGOT) 103 U/L (14-36); Albumin 3.3 g/dl (3.5-5.0); Alkaline Phosphatase 59 U/L (38-126); Blood Urea Nitrogen 13 mg/dl (7-17); Calcium 8.5 mg/dl (8.4-10.2); Carbon Dioxide 29 mmol/L (22-30); Chloride 99 mmol/L (98-107); Estimated Creatinine Clearance 47 ml/min; Glucose 93 mg/dl (70-99); Potassium 3.7 mmol/L (3.5-5.1); Sodium 135 mmol/L (135-145); Total Protein 5.5 g/dl (6.3-8.2); eGFR > 60.00
[2024-07-17] MEDS: DUONEB 3 ML INH (10:12)
--- NOTE | 2024-07-17 13:04 | CM ---
grocery manager reviewed patient's chart and patient is currently on 4 liters of oxygen, patient did not require oxygen prior to admission, patient was seen by physical therapy and plan is for skilled placement, options were reviewed and referrals sent
to [facility] and [facility], no beds available are available at [facility] but [facility] will have a bed tomorrow for patient.
Plan; Skilled placement at [facility] tomorrow, patient will need COVID test completed prior to transfer.
--- NOTE | 2024-07-17 13:13 | W.PN.CARDCBS ---
Addendum entered and electronically signed by Guzman Mccrary MD 07/17/24 16:07:
I saw and examined the patient.
The Sidewalk Inspector's note was reviewed and I agree with the note.
Comment:
GEN: No distress, awake, Ox3
HEENT: supple, anicteric, mmm
LUNGS: bilat rhonchi
CV: Reg, S1/S2, 1/6 syst LSB, no gallop
ABD: soft, BS+, NT/ND
EXT: No edema
NEURO: Gross non-focal
SKIN: No rash
Plan:
Telemetry with no further pauses. Abnormal troponins and is likely nonischemic myocardial injury.
Improving status post influenza/bronchitis
Echo with mild anteroseptal hypokinesis. Will need outpatient nuclear stress test. Continue aspirin and atorvastatin.
With pauses would hold off on beta-blockers or AV yessy blockers.
Continue Spiriva.
Original Note:
Today's Communication / Plan
-
eval for home O2
no pauses noted on tele overnight.
will arrange OP stress testing at follow up cardiology appt
plan for SNF upon DC
Impression / Plan
-
Primary Hydroblaster: none prior to admission, initially seen by Dr. Carlos
Impression:
Presentation with syncope
Sinus pauses up to 4.6 seconds
Chest discomfort s/p brief CPR secondary to above
Influenza A +
Bronchitis secondary to above
Elevated troponin, suspected nonischemic myocardial injury secondary to above
Recurrent UTIs
Hyperlipidemia
Chronic left bundle branch block
COPD
Ongoing tobacco use
Weight Loss / Malnutrition
Right pelvic hematoma with 3 g hemoglobin drop
Echo 07/12/24: EF 51%, mild mid anteroseptal hypokinesis, trivial MR, mild TR
Plan:
-no pauses or NSVT on review of tele overnight. she is tachycardic at times, presumably correlating with ambulation as she is noted to desat when she moves. eval for home O2
-avoiding av yessy blocking agents given previously noted sinus pauses
-proBNP 2770. trace pleural effusions B/L noted on CT from 07/15. echo from 07/12 as above, EF preserved. LFTs are mildly elevated. does not appear clearly volume overloaded and weight appears stable from admission.
-asa presently on hold given pelvic hematoma.
-trop peaked at 0.15 earlier in admission in setting of syncope s/p CPR and influenza. no CP. will plan for OP stress test to be ordered at OP follow up once recovered from acute illness.
-plan for SNF upon DC
-OP cardiac follow up arranged
-d/w nursing, granddaughter at bedside
HPI: Patient is an 88-year-old female with past medical history of recurrent UTIs, hyperlipidemia, likely COPD, ongoing tobacco use who presented to [facility] due to syncopal episode while at urgent care for evaluation of flulike symptoms.
She tested positive for influenza. Shortly after transferring from exam table to a chair she passed out. Her granddaughter who is an ICU nurse lowered her to the floor and was unable to detect a pulse, therefore started CPR, and patient was noted
to quickly wake up. Denies prodromal symptoms however states it all happened very fast. She was brought to the ER and admitted. Cardiology consulted as troponins mildly elevated. Patient denies cardiac history, and denies chest pains prior to
admission and prior to the episode. She does report some chest discomfort at present felt to be due to CPR.
Progress Note - Hydroblaster
Subjective
Date of Service: July 17, 2024
reports CP with cough. SOB with exertion.
Objective
Labs:
07/17/24 08:52
07/17/24 08:52
Labs
Hgb 9.2 g/dL (12.0-16.0) L 07/17/24 08:52
Hct 26.7 % (37.0-47.0) L 07/17/24 08:52
Plt Count 217 10^3/uL (130-400) D 07/17/24 08:52
Sodium 135 mmol/L (135-145) 07/17/24 08:52
Potassium 3.7 mmol/L (3.5-5.1) 07/17/24 08:52
BUN 13 mg/dl (7-17) 07/17/24 08:52
Creatinine 0.6 mg/dL (0.6-1.0) 07/17/24 08:52
Glucose 93 mg/dl (70-99) 07/17/24 08:52
Vital Signs and I&O:
Vital Signs
Temp Pulse Resp BP Pulse Ox
97.0 F 111 24 119/54 91
07/17/24 11:49 07/17/24 11:49 07/17/24 11:49 07/17/24 11:49 07/17/24 11:50
Vital Signs
Temp Pulse Resp BP Pulse Ox
97.0 F 111 24 119/54 91
07/17/24 11:49 07/17/24 11:49 07/17/24 11:49 07/17/24 11:49 07/17/24 11:50
Intake & Output
07/15/24 07/16/24 07/17/24 07/18/24
07:59 07:59 07:59 07:59
Intake Total 1000 / 1000 600 / 600 480 / 480
Balance 1000 / 1000 600 / 600 480 / 480
Physical Exam
Physical Exam
GEN: No distress, awake, alert, oriented x3. on supp O2. sitting in chair
HEENT: supple, anicteric, mmm, eomi
LUNGS: diminished BS at bases, no wheezes
CV: Reg/tachy, S1/S2, 1/6 syst LSB
ABD: soft, BS+, NT/ND
EXT: No cyanosis, clubbing, edema
NEURO: Gross non-focal
SKIN: Warm, pink, dry. No rash
--- NOTE | 2024-07-17 15:18 | W.PN.HOSP.TC ---
Today's Communication/Plan
-
Home O2 eval on dc if going home
Wean O2 as able
CW Tamiflu
Assessment / Plan
Assessment / Plan
Assessment/Plan
Syncope, doubt true cardiac arrest
Orthostatic Hypotension
-Orthostatic hypotension: blood pressure laying 119/56, HR 74. BP sitting 72/40, HR 71 initially
-At urgent care on 07/11/24, urgent care provider did not hear heart sounds and granddaughter who is an ICU nurse started CPR -- patient received 1 round of CPR and 2 rescue breaths started to wake up -- had some chest
wall pain after that, as expected
-Consulted Cardiology, appreciate their evaluation and recommendations
-Chest x-ray showed probable chronic pleural-parenchymal scarring in the lung apices; small probable post inflammatory bleb.
-Monitor on Telemetry
-Echo 07/12 with EF 51% and mild mid anteroseptal hypokinesis as noted above. Would recommend OP ischemic evaluation once recovered from influenza.
-JIMI compression hose
Fever 100.6 F on 07/15/24 -resolved
Worsening Hypoxia, Tachycardia on 07/15/24
Wet Cough on 07/15/24 morning
Pleural parenchymal scarring at both lung apices with a 3.5 cm left apical bleb on CT Imaging from 07/15/24
Mild additional emphysematous changes on CT Imaging from 07/15/24
Minimal bilateral pleural effusions with dependent and compressive atelectasis at the posterior lung bases on CT Imaging
-RLE ultrasound showed no DVT, and CT Chest showed no PE; on exam, no signs or symptoms or DVT on LLE.....so less likely a VTE causing fever.
-No clear source of bacterial infection, no suggestion of pneumonia on CT Chest, no UTI signs or symptoms, no new skin redness, no concern for APRON TRIMMER infection
-Fever could be from Influenza (tested positive here on 07/11/24) and associated bronchitis, or maybe also from iliacus hematoma? COVID negative. Fever resolved.
-Patient does not have leukocytosis and with normal to elevated blood pressure and resolved tachycardia, hold off blood cultures at this point in time. Heart rate has also improved.
-Abdomen/Pelvis CT (which included CT Chest) showed no pulmonary embolism
- Follow clinically
- Might need Home O2 on dc
Bradycardia
-Bradycardia seems like it has resolved -- continue to monitor on telemetry
-Hold beta lori which was newly started
-If patient has symptomatic bradycardia again in the absence of negative chronotropic's, may need to consider pacemaker implantation, hopefully as she recovers from influenza this will not be required. Likely will need outpatient ambulatory monitor.
Acute Bronchitis secondary to Influenza A
URI symptoms, weakness and fever for ~2 days prior to presentation
-Continue Tamiflu course
-Continue DuoNeb PRN
New, right hip/leg pain that is sharp/stabbing (07/13/24) Secondary to Right iliacus intramuscular hematoma
On 07/14/24 described as pain starting at right knee and goes up to RLQ
Right iliacus intramuscular hematoma -- not traumatic as patient did not fall
-Ultrasound was negative for DVT on the right side
-CT imaging of abdomen pelvis and RLE: 'Right iliacus intramuscular hematoma.....estimated size of the right iliacus intramuscular hematoma is 8.5 cm transverse by 5 cm AP, with a length of approximately 14 cm' and '....mild to moderate venous
distention involving the distal femoral vein, appearing somewhat bilobed in configuration, with the proximal distended component measuring approximately 1.6 cm and the more distal distended component measuring 1.4 cm.'
-Stopped Aspirin (okay to stop Aspirin as per cardiology)
-Stopped Lovenox
-Repeat CT imaging (done for PE given patient's increased oxygen requirement on 07/15/24) included the abdomen pelvis, and it showed stable size of the hematoma
-Appreciate vascular surgery input: no surgery needed at this time, but surgery only for hard indications (rapid expansion, hemodynamic instability, progressive motor compromise).
Acute blood loss anemia -from intramucular hematoma .
Follow HH closely. NO external obvious bleeding.
Tobacco Use Disorder
-Encourage smoking cessation
-Continue Spiriva
Vascular calcification including coronary artery calcification
Hyperlipidemia
-Continue simvastatin
Weight Loss / Malnutrition
-Continue mirtazapine
-Consult Dietary
History of Recurrent UTIs -- bladder sutured to pelvic wall
Recurrent UTIs
-Continue Hiprex
Colonic Diverticula
Small bilateral renal cysts
Mild concentric bulging of the L5-S1 intervertebral disc
DVT Prophylaxis: Lovenox
Code Status: Full Code
Anticipated Discharge: 24 - 48 hours
Subjective/Interval History
-
Date of Service: July 17, 2024
Patient still on oxygen at 4 L. She does okay at rest but with minimal exertion she is dropping her saturation into high 80s.
Still has soreness in anterior chest wall after CPR.
Denies any cough. No fever chills.
No nausea vomiting.
Objective Data
-
Labs:
Laboratory Results
07/17/24
08:52
WBC 10.1
Hgb 9.2 L
Hct 26.7 L
Plt Count 217 D
Sodium 135
Potassium 3.7
Chloride 99
Carbon Dioxide 29
BUN 13
Creatinine 0.6
Glucose 93
Calcium 8.5
Total Bilirubin 1.0
AST 103 H
ALT 66 H
Alkaline Phosphatase 59
Vital Signs:
Vital Signs
Temp Pulse Resp BP Pulse Ox
97.0 F 111 24 119/54 91
07/17/24 11:49 07/17/24 11:49 07/17/24 11:49 07/17/24 11:49 07/17/24 11:50
I&O
07/16/24 07/17/24 07/18/24
06:59 06:59 06:59
Intake Total 600 / 600 480 / 480
Balance 600 / 600 480 / 480
Review of Systems
-
Constitutional: Denies Fever
EENT: Denies Sore Throat
Abdomen/GI: Denies Abdominal Pain, Nausea or Vomiting
Neuro: Denies Dizzy
Physical Exam
-
General: Comfortable
Respiratory: Non Labored Respirations; Negative Rales, Crackles or Accessory Resp Muscle Use
Cardiac: S1/S2, Irregular Rhythm and Tachycardic
GI: Soft
Neuro: AO x 3
Psych: Calm; Negative Confused
Data Reviewed
-
Labs: Labs Reviewed by me
[2024-07-17] MEDS: REMERON 7.5 MG PO (20:06)
--- NOTE | 2024-07-18 02:50 | DOWNTIME ---
There was a [employer] Captain Downtime on 07/18/2024 from 0100 to 07/18/2023 at 0235 . Downtime documentation of patient's care, including medication administrations, has been reconciled in the electronic record per guidelines. Refer to the
patient's paper chart under the miscellaneous tab to see printed paper medication records and downtime forms.
[2024-07-18 04:34] LABS: COVID-19 Antigen Negative (Negative)
[2024-07-18 05:05] VITALS: BMI 20.2
[2024-07-18 07:23] VITALS: BP 152/74
[2024-07-18] MEDS: LIDOCAINE 4% PATCH TOPICAL (07:55)
[2024-07-18] MEDS: LIPITOR 20 MG PO (07:56)
[2024-07-18] MEDS: HIPREX 1 GRAM PO (07:56)
[2024-07-18] MEDS: TYLENOL 1000 MG PO (07:56)
[2024-07-18] MEDS: MUCINEX 600 MG PO (07:56)
[2024-07-18] MEDS: SPIRIVA RESPIMAT 2.5 MCG 2 PUFF INH (08:17)
--- NOTE | 2024-07-18 09:50 | W.PN.UPDATE ---
Update Note
Progress Note Update
Patient currently off telemetry. Will sign off. Clinically cardiac stable. Plan for outpatient follow-up. Continue to hold AV yessy blocking agents. Continue current medications.
[2024-07-18 11:36] VITALS: BP 141/61; PULSE 118; O2SAT 90
[2024-07-18 11:38] VITALS: PULSE 117; O2SAT 90
--- NOTE | 2024-07-18 12:05 | CM ---
Patient has been accepted and bed is available at [facility] today, patient will need COVID testing prior to discharge, ambulance transport, patient is on 4 liters of oxygen.
Plan; Skilled placement at [facility] today
Report [phone]
--- NOTE | 2024-07-18 13:01 | PN.CDI ---
CDI
- -
CDI:
Physician Documentation Request
Admit Date: 07/11/24 18:45
Dear Doctor Kobi
Please review the following and provide your response in the progress notes.
Clinical Indicators:
Documentation in hospitalist progress notes includes the diagnosis of malnutrition.
RD notes state 'Current BW: (07/12) 103 lbs 9 oz BMI: 20.2 (normal):She gained 8 lbs recently'
To ensure the quality of the medical record, based on the above information and the recognized standards for malnutrition , could you please verify in your progress notes which of the following responses best reflects the patient's nutritional
status:
(Specify severity) Malnutrition is/was present and is a clinical diagnosis (please provide additional support in the medical record)
No nutritional deficiency
Other (please specify)
[place] Criteria ([facility] Hospitalist 2017)
2 or more criteria must be present for either
non severe or severe malnutrition
Note that the criteria differs related to the
presence of an acute or chronic illness
Acute Illness Chronic Illness
Energy Intake Non Severe: <75% for >7 days Non Severe: <75% for >1 month
Severe: <50% for >5 days Severe: <75% for >1 month
Weight Loss Non Severe: 1-2% over 1 week Non Severe: 5% over 1 month
5% over 1 month 7.5% over 3 months
7.5% over 3 months 10% over 6 months
1 year N/A 20% over 1 year
Severe: >2% over 1 week Severe: >5% over 1 month
>5% over 1 month >7.5% over 3 months
>7.5% over 3 months >10% over 6 months
1 year N/A >20% over 1 year
Body Fat Non Severe: Mild Decrease Non Severe: Mild Loss
Severe: Moderate Decrease Severe: Severe Loss
Muscle Mass Non Severe: Mild Decrease Non Severe: Mild Loss
Severe: Moderate Decrease Severe: Severe Loss
Fluid Accumulation Non Severe: Mild Accumulation Non Severe: Mild Accumulation
Severe: Moderate to severe Severe: Moderate to severe
accumulation accumulation
Reduced Banquet Stewardess Strength Non Severe: N/A Non Severe: N/A
Severe: Measurably reduced Severe: Measurably reduced
Use of terms such as suspected, likely, concern for, or probable (associated with a specific diagnosis that is being evaluated, monitored, or treated as if it exists) are acceptable and can be coded in the inpatient setting, when documented at the
time of discharge.
Thank you,
Meme Bryant RN, BSN
CDI Specialist
tiger text
Please use your independent medical judgment in providing your response.
--- NOTE | 2024-07-18 15:06 | W.PN.HOSP.TC ---
Addendum entered and electronically signed by Sean Peace MD 07/19/24 15:28:
No nutritional deficiency based on nutritional history
Original Note:
Today's Communication/Plan
-
dc
Assessment / Plan
Assessment / Plan
Assessment/Plan
Syncope, doubt true cardiac arrest
Orthostatic Hypotension
-Orthostatic hypotension: blood pressure laying 119/56, HR 74. BP sitting 72/40, HR 71 initially
-At urgent care on 07/11/24, urgent care provider did not hear heart sounds and granddaughter who is an ICU nurse started CPR -- patient received 1 round of CPR and 2 rescue breaths started to wake up -- had some chest
wall pain after that, as expected
-Consulted Cardiology, appreciate their evaluation and recommendations
-Chest x-ray showed probable chronic pleural-parenchymal scarring in the lung apices; small probable post inflammatory bleb.
-Echo 07/12 with EF 51% and mild mid anteroseptal hypokinesis as noted above. Would recommend OP ischemic evaluation once recovered from influenza.
-JIMI compression hose
Fever 100.6 F on 07/15/24 -resolved
Worsening Hypoxia, Tachycardia on 07/15/24
Wet Cough on 07/15/24 morning
Pleural parenchymal scarring at both lung apices with a 3.5 cm left apical bleb on CT Imaging from 07/15/24
Mild additional emphysematous changes on CT Imaging from 07/15/24
Minimal bilateral pleural effusions with dependent and compressive atelectasis at the posterior lung bases on CT Imaging
-RLE ultrasound showed no DVT, and CT Chest showed no PE; on exam, no signs or symptoms or DVT on LLE.....so less likely a VTE causing fever.
-No clear source of bacterial infection, no suggestion of pneumonia on CT Chest, no UTI signs or symptoms, no new skin redness, no concern for RECRUITING ASSISTANT infection
-Fever could be from Influenza (tested positive here on 07/11/24) and associated bronchitis, or maybe also from iliacus hematoma? COVID negative. Fever resolved.
-Patient does not have leukocytosis and with normal to elevated blood pressure and resolved tachycardia, hold off blood cultures at this point in time. Heart rate has also improved.
-Abdomen/Pelvis CT (which included CT Chest) showed no pulmonary embolism
- Wean O2 at rehab
- Pt advised strongly to quit tobacco smoking.
Bradycardia
-Bradycardia seems like it has resolved -- continue to monitor on telemetry
-Hold beta lori which was newly started
-If patient has symptomatic bradycardia again in the absence of negative chronotropic's, may need to consider pacemaker implantation, hopefully as she recovers from influenza this will not be required. Likely will need outpatient ambulatory monitor.
Acute Bronchitis secondary to Influenza A
URI symptoms, weakness and fever for ~2 days prior to presentation
-Finished Tamiflu course
- no wheeze
New, right hip/leg pain that is sharp/stabbing (07/13/24) Secondary to Right iliacus intramuscular hematoma
On 07/14/24 described as pain starting at right knee and goes up to RLQ
Right iliacus intramuscular hematoma -- not traumatic as patient did not fall
-Ultrasound was negative for DVT on the right side
-CT imaging of abdomen pelvis and RLE: 'Right iliacus intramuscular hematoma.....estimated size of the right iliacus intramuscular hematoma is 8.5 cm transverse by 5 cm AP, with a length of approximately 14 cm' and '....mild to moderate venous
distention involving the distal femoral vein, appearing somewhat bilobed in configuration, with the proximal distended component measuring approximately 1.6 cm and the more distal distended component measuring 1.4 cm.'
-Stopped Aspirin (okay to stop Aspirin as per cardiology)
-Stopped Lovenox
-Repeat CT imaging (done for PE given patient's increased oxygen requirement on 07/15/24) included the abdomen pelvis, and it showed stable size of the hematoma
-Appreciate vascular surgery input: no surgery needed at this time, but surgery only for hard indications (rapid expansion, hemodynamic instability, progressive motor compromise).
Acute blood loss anemia -from intramucular hematoma .
HH stable.
Tobacco Use Disorder
-Encourage smoking cessation
-Continue Spiriva
Vascular calcification including coronary artery calcification
Hyperlipidemia
-Continue simvastatin
Weight Loss / Malnutrition
-Continue mirtazapine
-Consult Dietary
History of Recurrent UTIs -- bladder sutured to pelvic wall
Recurrent UTIs
-Continue Hiprex
Colonic Diverticula
Small bilateral renal cysts
Mild concentric bulging of the L5-S1 intervertebral disc
DVT Prophylaxis: Lovenox
Code Status: Full Code
Medically stable for discharge to rehab.
DW CM and RN.
Total time of discharge 32 minutes
Anticipated Discharge: Today
Subjective/Interval History
-
Date of Service: July 18, 2024
Feels improved with her breathing.
Now on lesser FIO2 3l
Current smoker-plan to quit to going forward.
No nausea vomiting.
Right hip movements are much less painful.
Objective Data
-
Vital Signs:
Vital Signs
Temp Pulse Resp BP Pulse Ox
98.0 F 110 20 152/74 91
07/18/24 07:23 07/18/24 08:21 07/18/24 08:21 07/18/24 07:23 07/18/24 08:21
I&O
07/17/24 07/18/24 07/19/24
06:59 06:59 06:59
Intake Total 480 / 480 840 / 840
Balance 480 / 480 840 / 840
Review of Systems
-
Constitutional: Denies Fever
Cardiac: Denies Chest Pain
Abdomen/GI: Denies Abdominal Pain, Nausea or Vomiting
Neuro: Denies Dizzy
Physical Exam
-
General: Comfortable
HEENT: Moist Mucous Membranes
Respiratory: Clear to Auscultation and Non Labored Respirations; Negative Accessory Resp Muscle Use
Cardiac: Regular Rhythm and S1/S2
GI: Soft
Neuro: AO x 3
[2024-07-18 15:35] VITALS: BP 162/85
== END 2024-07-18 18:44 | DRG 194 ==
LOC: 4 WEST ACU 18:45
PROVIDERS: Hospitalist; Internal Medicine Cardiovascular Disease; Nurse Practitioner Family; Physician Assistant; Physician Assistant Medical; ADMITTING PHYSICIAN Hospitalist; ATTENDING PHYSICIAN Internal Medicine; CONSULT PHYSICIAN Surgery; EMERGENCY PHYSICIAN Emergency Medicine; FAMILY PHYSICIAN Internal Medicine Geriatric Medicine; OTHER PHYSICIAN Internal Medicine Cardiovascular Disease
DX: J10.1 Influenza due to other identified influenza virus with other respiratory manifestations (principal); D62 Acute posthemorrhagic anemia; I5A Non-ischemic myocardial injury (non-traumatic); J98.11 Atelectasis; Q61.02 Congenital multiple renal cysts; I47.29 Other ventricular tachycardia; J91.8 Pleural effusion in other conditions classified elsewhere; I11.9 Hypertensive heart disease without heart failure; F17.210 Nicotine dependence, cigarettes, uncomplicated; I95.1 Orthostatic hypotension; R42 Dizziness and giddiness; I25.10 Atherosclerotic heart disease of native coronary artery without angina pectoris; E78.00 Pure hypercholesterolemia, unspecified; K57.30 Diverticulosis of large intestine without perforation or abscess without bleeding; J44.89 Other specified chronic obstructive pulmonary disease; I44.7 Left bundle-branch block, unspecified; M25.561 Pain in right knee; E87.6 Hypokalemia; M79.81 Nontraumatic hematoma of soft tissue; Z60.2 Problems related to living alone; Z87.440 Personal history of urinary (tract) infections; Z11.52 Encounter for screening for COVID-19; Z88.0 Allergy status to penicillin
CPT/HCPCS: 71046; 71111; 71275; 73701; 74177; 80048; 80053; 80061; 82962; 83735; 83880; 84484; 85025; 85027; 87502; 87811; 93005; 93306; 93971; 94640; 96360; 97162; 97167; 97530; 99285; 99406; Q9967

== ENCOUNTER 2024-11-23 16:05 | Emergency (ER) | payer MEDICARE, OTHER, SELFPAY ==
[2024-11-23 16:08] VITALS: BP 177/81
[2024-11-23 16:46] LABS: Urine Albumin 2+ (Neg - Trace); Urine Bilirubin Negative (Negative); Urine Character Clear (Clear); Urine Color Yellow; Urine Glucose Negative (Negative); Urine Ketone Negative (Negative); Urine Leukocyte Negative (Negative); Urine Nitrite Negative (Negative); Urine Occult Blood 1+ (Negative); Urine Urobilinogen Negative (Neg - 1+); Urine pH 6.5 (5.0-9.0)
[2024-11-23 16:59] LABS: Urine Urothelial Cell 0-2 /LPF (FEW)
[2024-11-23 17:30] VITALS: BMI 21.0
[2024-11-23 17:31] VITALS: BP 170/76
[2024-11-23 17:59] LABS: % Immature Granulocytes 0.2 % (0-0.5); % Lymphocytes 31.4 % (20.5-51.1); % Monocytes 6.2 % (1.7-9.3); % Neutrophils 60.2 % (42.2-75.2); Absolute Basophils 0.1 10^3/uL (0-0.2); Absolute Eosinophils 0.1 10^3/uL (0-0.7); Absolute Lymphocytes 3.3 10^3/uL (1.2-3.4); Absolute Monocytes 0.6 10^3/uL (0.1-0.6); Absolute Neutrophils 6.3 10^3/uL (1.4-6.5); Hematocrit 38.2 % (37.0-47.0); Hemoglobin 12.8 g/dL (12.0-16.0); Mean Corp Hgb Conc. 33.5 g/dL (33.0-37.0); Mean Corpuscular Volume 92.5 fL (81.0-99.0); Mean Platelet Volume 11.3 fL (7.4-10.4); Nucleated Red Blood Cells % 0 %; Platelet Count 248 10^3/uL (130-400); Red Blood Cell Count 4.13 10^6/uL (4.20-5.40); Red Cell Dist. Width 12.9 % (11.5-14.5); White Blood Cell Count 10.4 10^3/uL (4.8-10.8)
[2024-11-23 18:08] LABS: ALT (SGPT) 16 U/L (0-35); AST (SGOT) 28 U/L (14-36); Albumin 4.8 g/dl (3.5-5.0); Alkaline Phosphatase 63 U/L (38-126); Blood Urea Nitrogen 15 mg/dl (7-17); Calcium 9.8 mg/dl (8.4-10.2); Carbon Dioxide 24 mmol/L (22-30); Chloride 107 mmol/L (98-107); Estimated Creatinine Clearance 44 ml/min; Glucose 111 mg/dl (70-99); Potassium 4.2 mmol/L (3.5-5.1); Sodium 140 mmol/L (135-145); Total Bilirubin 0.7 mg/dl (0.2-1.3); Total Protein 7.7 g/dl (6.3-8.2); eGFR > 60.00
--- NOTE | 2024-11-23 18:32 | ED.GENMED ---
History of Present Illness
General
Chief Complaint: Urinary Symptoms
Source: patient
Exam Limitations: none
Time Seen by Provider: 11/23/24 18:16
History of Present Illness
History of Present Illness:
See MDM
Past History
Past History
ED Past Medical History: COPD, HTN and Hypercholesterolemia
ED Past Surgical History: Urological
Social History
Tobacco: Former smoker
Drug: None
Personal:
Living: with family
Employment: Retired
Family History
Family History: Other
Phy Exam
Physical Exam
Physical Exam:
See MDM
Course
Orders/Labs/Results
Orders:
Orders
11/23/24 16:17
Urinalysis Reflex To Culture Urgent
Date Specimen was Collected: 11/23/24
Time Specimen was Collected: 16:11
Urine Microscopic Reflex Cult Urgent
11/23/24 17:47
CBC/With Diff [Complete Blood Count/With Diff] Urgent
Comprehensive Metabolic Panel Urgent
11/23/24 18:31
Phenazopyridine HCl [Pyridium] 100 mg PO NOW STA
Abnormal Lab Results
11/23/24 11/23/24
16:17 17:47
RBC 4.13 L 10^6/uL
(4.20-5.40)
MPV 11.3 H fL
(7.4-10.4)
Glucose 111 H mg/dl
(70-99)
Ur Occult Blood Reflex 1+ A
(Negative)
Urine RBC 3-6 A /HPF
(0-2)
Urine Albumin (Reflex) 2+ A
(Neg - Trace)
11/23/24 17:47
11/23/24 17:47
Vital Signs
Initial and Last Documented VS:
Initial Vital Signs
Temp Pulse Resp BP Pulse Ox
98.0 F 90 16 177/81 95
11/23/24 16:08 11/23/24 16:08 11/23/24 16:08 11/23/24 16:08 11/23/24 16:08
Last Documented Vital Signs
Temp Pulse Resp BP Pulse Ox
98.0 F 82 19 170/76 98
11/23/24 16:08 11/23/24 18:15 11/23/24 18:15 11/23/24 17:31 11/23/24 18:15
MDM/Problems Addressed
Differential Diagnosis Includes:
HPI and MDM Narrative:
89-year-old female presenting for evaluation of dysuria. Patient has been developing symptoms for a few days. She initially thought it could be a UTI. She went to urgent care but was sent to the emergency department for further evaluation. Blood
work and urinalysis were performed. Blood work without significant abnormality. Urinalysis does show mild hematuria but no evidence of infection. On my exam, patient states her symptoms are already improving. She is currently on methamphetamine
daily for UTI prophylaxis. She has followed up with urology in the past and states she has had 2 cystoscopies showing no evidence of mass. We discussed calling the urologist for the hematuria for further workup. Since that she is improving and
looks well, patient states she wants to be discharged. We discussed return precautions. Will write for Pyridium as needed
Physical exam
General: Well appearing and non-toxic
HEENT: protecting airway
Neck: appears supple
CV: No evidence of cyanosis
Resp: No accessory muscle use
Abd: Non-distended. Soft and nontender
Extremities: No deformities
Neuro: alert
Psych: Normal affect
Skin: Intact
Problems Addressed including Acute and Chronic Conditions affecting care:
1. Dysuria
Acuity: acute
Prognosis: stable
Details: Symptoms appear to be self improving. Discussed follow-up with urology. Urinalysis negative for infection
Differential Diagnosis (but not limited to): UTI, overactive bladder, bladder stone
Testing considered: CT abdomen/pelvis
Drug therapy (if applicable): OTC meds, please see d/c instruction regarding Rx drugs
Amount and/or Complexity of Data Reviewed
Clinical info obtained from: Patient
External data reviewed: N/A
Labs I independently reviewed (but not limited to): White blood cell count normal, mild hematuria
Radiology: N/A
Pulse Ox: not hypoxic
EKG independently reviewed: N/A
Primary Health Organisation Manager: N/A
Critical Care: N/A
Risk of Complication:
Social Determinants of health: Good social support
Discussed with other providers: N/A
Escalation of Care includes Admit/Obs: After being observed in the Emergency Department, pt stable for discharge.
Occasional wrong word or 'sound a like' substitutions may have occurred due to the inherent limitations of voice recognition software. Read the chart carefully and recognize, using context, where substitutions have occurred.
*Pulse Oximetry
SaO2: 98
Oxygen Mode of Delivery: Room air
Patient hypoxic: no
*Critical Care Note
Total Time (30-74mins, 75-104mins- exclusive of procedures): Not Applicable
ED Attending Note
-
Portions of this chart may have been created with voice recognition software.� Occasional wrong word or��sound alike� substitutions may have occurred due to the inherent limitations of voice recognition software.
Discharge Plan
Departure
Patient Disposition: Home (Routine Discharge)
Date of Disposition: 11/23/24
Time of Disposition: 18:32
Patient with high blood pressure during this ER visit?: Yes
Discharge Problem:
Dysuria
Instructions: Blood in the Urine (Hematuria), Adult (DC), BLOOD PRESSURE
Prescriptions:
New
phenazopyridine [Pyridium] 100 mg tablet
100 mg PO TID PRN (Reason: Pain) Qty: 6 0RF
No Action
simvastatin 40 mg tablet
40 mg PO DAILY
methenamine hippurate 1 gram tablet
1 g PO BID
mirtazapine 7.5 mg tablet
7.5 mg PO DAILY
Spiriva Respimat 2.5 mcg/actuation mist
2 puff INHALATION DAILY
guaifenesin 100 mg/5 mL Liquid
100 mg PO Q4HPRN PRN (Reason: cough) Qty: 1 0RF
aspirin 81 mg Tablet,Chewable
81 mg PO DAILY Qty: 1 0RF
guaifenesin 600 mg Tablet Extended Release 12hr
600 mg PO Q12 Qty: 1 0RF
Referrals:
Agapito Baltazar MD [Family Provider, Internal Medicine]
Activity Restrictions/Additional Instructions:
Please return for any worsening symptoms.
You may return at any time if you have further concerns.
Please follow up with your doctor at the first available appointment, preferably this week.
Please make an appointment to see your urologist as well.
Thank you for choosing [facility].
Interventions
Interventions:
*Risk Screen - Suicide Last Done: 11/23/24 17:32
*General Assessment Last Done: 11/23/24 17:32
*Neglect/Abuse Screening Last Done: 11/23/24 17:32
*ED- Fall Risk Assessment Last Done: 11/23/24 17:32
*ED COVID-19 Vaccine History Last Done: 11/23/24 17:32
ED-Female Genitourinary Assessment Last Done: 11/23/24 17:33
Discharge Date and Time
Print Language: ALBANIAN
[2024-11-23] MEDS: Pyridium 100 MG PO (18:43)
[2024-11-23 18:50] VITALS: BP 165/65
== END 2024-11-23 19:04 | disposition home or self-care (01) ==
LOC: EMR 16:05
PROVIDERS: Emergency Medicine; Registered Nurse; EMERGENCY PHYSICIAN Student in an Organized Health Care Education/Training Program; FAMILY PHYSICIAN Internal Medicine Geriatric Medicine
DX: R30.0 Dysuria (principal); J44.9 Chronic obstructive pulmonary disease, unspecified; I10 Essential (primary) hypertension; E78.00 Pure hypercholesterolemia, unspecified; Z87.891 Personal history of nicotine dependence
CPT/HCPCS: 99283; 80053; 81003; 81015; 85025